=== PATIENT | male | born 1975 | race Hispanic/Latino ===

== ENCOUNTER 2021-06-23 01:50 | Inpatient (IN) | payer OTHER ==
[~2021-06-23] VITALS: Ht 170.2 cm; Wt 139.3 kg
[~2021-06-23 01:50] MED LIST: AMLO10TA PO; AMLO1TAB25 PO; AMLO5CAP45 PO; ASPI81TA26 PO; ASPI81TA86 PO; ATEN100T PO; AUGM875T28 PO; BENA40TA5 PO; CHLO125TA PO; CORE25TA PO; HYDR12.55 PO; K-TA1TAB PO; LASI40TA9 PO; LISI40TA52 PO; NICO21DI3 TD; OSEL75CA PO; PRIL40CA PO; PRIN20TA3 PO; TYLE325T5 PO
[2021-06-23] MEDS ORDERED: FERR325T3 PO (03:10)
[2021-06-23] MEDS ORDERED: FOLI1TAB11 PO (03:10)
[2021-06-23] MEDS ORDERED: ASPI81CH33 PO (03:10)
[2021-06-23] MEDS ORDERED: ATOR40TA75 PO (03:10)
[2021-06-23] MEDS ORDERED: HYDR25TA PO (03:10)
[2021-06-23] MEDS ORDERED: MM S100C PO (03:10)
[2021-06-23] MEDS ORDERED: NIFE20CA PO (03:10)
[2021-06-23] MEDS ORDERED: SODI650T PO (03:10)
[2021-06-23] MEDS ORDERED: FURO80TA2 PO (03:10)
[2021-06-23] MEDS ORDERED: **hydrALAZINE HCL** 25 MG TAB PO ONE (03:20)
[2021-06-23] MEDS ORDERED: CARVedilol 12.5 MG TAB PO ONE (03:20)
[2021-06-23 03:43] LABS: BASO % 0.4 % (0.0-1.0); EOS # 0.1 10^3/uL (0.0-0.5); EOS % 1.8 % (0.0-3.0); HEMATOCRIT 32.2 % (42.0-52.0); HEMOGLOBIN 10.1 g/dl (13.5-17.5); LYMPH % 13.5 % (24.0-44.0); MEAN CORPUSCULAR HEMOGLOBIN 27.9 pg (27.0-33.0); MEAN CORPUSCULAR HGB CONC 31.4 g/dl (32.0-36.5); MONO # 0.6 10^3/uL (0.0-0.8); MONO % 7.5 % (2.0-8.0); NEUTROPHILS # 5.8 10^3/uL (1.5-8.5); NEUTROPHILS % 76.5 % (36.0-66.0); PLATELET COUNT, AUTOMATED 185 10^3/uL (150-450); RED BLOOD COUNT 3.62 10^6/uL (4.30-6.10); WHITE BLOOD COUNT 7.6 10^3/uL (4.0-10.0)
[2021-06-23] MEDS ORDERED: NIFEdipine 30 MG XL TAB PO ONE (03:45)
[2021-06-23 04:01] LABS: C REACTIVE PROTEIN QUANTITATIV 2.1 MG/DL (0.00-0.30); CALCIUM LEVEL 6.7 MG/DL (8.5-10.1); CREATININE FOR GFR 4.12 MG/DL (0.70-1.30); GLOMERULAR FILTRATION RATE 16.9 (>60); POTASSIUM SERUM 4.4 MEQ/L (3.5-5.1)
[2021-06-23] MEDS ORDERED: ANEXSIA, NORCO 7.5MG/325MG TABLET(HYDROCODONE/APAP) PO ONE (04:05)
[2021-06-23] MEDS ORDERED: NS 1,000 ML IV ONE ×2 (04:20)
[2021-06-23] MEDS ORDERED: ISOS1TAB35 PO (04:44)
[2021-06-23] MEDS ORDERED: NIFE90TA20 PO (04:44)
[2021-06-23] MEDS ORDERED: CALC667T2 PO (04:47)
[2021-06-23] MEDS ORDERED: D 101000 PO (04:47)
[2021-06-23] MEDS ORDERED: HOME MED LIST COMPLETE! XX SCH (04:50)
--- NOTE | 2021-06-23 05:02 | REPVR ---
PROCEDURE INFORMATION: Exam: XR Chest Exam date and time: 06/23/2021 4:50 AM Age: 46 years old Clinical indication: Other: Hypertensive; Additional info: Hypertensive emergency TECHNIQUE: Imaging protocol: XR of the chest. Views: 1 view. COMPARISON: CR Chest, 2 view PA, Lat 08/21/2015 4:01 PM FINDINGS: Lungs: There is suggestion of some peribronchial thickening with some prominent markings in the lung bases. Pleural spaces: Unremarkable. No pleural effusion. No pneumothorax. Heart/Mediastinum: The cardiomediastinal silhouette is magnified. Bones/joints: Unremarkable. IMPRESSION: 1. No focal lung consolidation. 2. Some central bronchial wall thickening with some prominent markings raising the possibility of bronchitis. Correlate clinically. Electronically signed by: Real Infante On 06/23/2021 05:01:44 AM
[2021-06-23] MEDS ORDERED: DOCUSATE SODIUM 100MG CAPSULE PO PRN (05:15)
[2021-06-23] MEDS ORDERED: ACETAMINOPHEN TAB 650MG DOSE (2X325MG) PO PRN (05:15)
--- NOTE | 2021-06-23 05:20 | REPVR ---
PROCEDURE INFORMATION: Exam: CT Left Lower Extremity Without Contrast; Lower Leg Exam date and time: 06/23/2021 3:40 AM Age: 46 years old Clinical indication: Other: Infected ulcer; Additional info: Callf ulcer, concern for abscess TECHNIQUE: Imaging protocol: CT of the Left lower extremity without contrast was performed. Exam focused on the lower leg. Radiation optimization: All CT scans at this facility use at least one of these dose optimization techniques: automated exposure control; mA and/or kV adjustment per patient size (includes targeted exams where dose is matched to clinical indication); or iterative reconstruction. COMPARISON: US Duplex, Ext LOWER veins, bilat 04/24/2015 10:15 AM FINDINGS: Bones/joints: Normal. No acute fracture or dislocation. Soft tissues: There is diffuse left calf and ankle subcutaneous edema. There is irregularity and cutaneous defect in the posterior distal calf. Vasculature: Dilated varicose veins seen in the medial and anterior calf. IMPRESSION: 1. Posterior distal calf cutaneous irregularity and defect likely the site of the ulcer mentioned in the clinical indication coupled with diffuse left calf and ankle subcutaneous edema but without obvious walled-off collection to suggest an abscess however the study is limited due to lack of IV contrast. 2. No bony destruction or periosteal reaction seen to suggest osteomyelitis. 3. Dilated varices in the medial and anterior aspect of the left lower leg Electronically signed by: Real Infante On 06/23/2021 05:19:44 AM
[2021-06-23 05:26] LABS: RSV AMPLIFICATION NEGATIVE (NEGATIVE)
[2021-06-23 05:39] LABS: PHOSPHORUS LEVEL 5.7 MG/DL (2.5-4.9)
--- NOTE | 2021-06-23 05:39 | HPEPDOC ---
General Date of Admission Date of Service: Jun 23, 2021 Attending Physician: Luis Curiel Chief Complaint Pain in the leg ulcer Source: Patient History of Present Illness Mr. Clark, a 46-year-old gentleman presented to the emergency department for pain in the chronic leg ulcer in the left lower leg. He has had ulcer in the left lower leg leg since July 2020. He has been in follow-up with wound care in [facility] for the leg ulcer. He is in [place], [place] for a family trip. He noted that he had increasing pain in the leg ulcer for last 2 days without increase in the redness or warmth in the skin in the vicinity of the ulcer. He did not notice any increasing size of the ulcer either. There has been no excessive discharge or purulence from the wound. He has had no fever or shaking chills. He has chronic kidney disease for a long duration now. He is being prepared for hemodialysis in [facility]. He has been recommended a fistula surgery, which he has to get done yet. He uses sodium bicarbonate pills along with calcium acetate and cholecalciferol. He has past history of severe hypertension. He is on 3 medications for hypertension, namely, nifedipine, carvedilol and hydralazine. He does not have cough, sputum production, hemoptysis, chest pain, shortness of breath, abdominal pain, nausea, vomiting, diarrhea, blood in the stool, melena, abdominal distention, constipation, burning in the urine, frequency of micturition, blood in the urine, headache, blurry vision, focal weakness of extremities, sensory symptoms on the face or extremities, joint pains, joint swellings, lymph node enlargement, skin rash, tongue ulcers, sore throat or symptoms of cold. Home Medications Scheduled Aspirin (Aspirin) 81 Mg Tab.chew, 81 MG PO DAILY, (Reported) Atorvastatin Calcium (Atorvastatin Calcium) 40 Mg Tablet, 40 MG PO QHS, ( Reported) Calcium Acetate (Calcium Acetate) 667 Mg Tablet, 667 MG PO TID, (Reported) Carvedilol (Coreg) 25 Mg Tab, 25 MG PO BID, (Reported) Cholecalciferol (Vitamin D3) (Vitamin D3) 25 Mcg Capsule, 25 MCG PO QWEEK, (Reported) FRIDAY Ferrous Sulfate (Ferrous Sulfate) 325 Mg Tablet.dr, 325 MG PO DAILY, (Reported) Folic Acid (Folic Acid) 1 Mg Tablet, 1 MG PO DAILY, (Reported) Furosemide (Furosemide) 80 Mg Tablet, 80 MG PO BID, (Reported) Hydralazine HCl (Hydralazine HCl) 25 Mg Tablet, 75 MG PO TID, (Reported) Isosorbide Mononitrate (Isosorbide Mononitrate ER) 30 Mg Tab.er.24h, 30 MG PO DAILY, (Reported) Nifedipine (Nifedipine ER) 90 Mg Tablet.er, 90 MG PO DAILY, (Reported) Sodium Bicarbonate (Sodium Bicarbonate) 650 Mg Tablet, 1,300 MG PO TID, (Reported) Scheduled PRN Docusate Sodium (Stool Softener) 100 Mg Capsule, 100 MG PO DAILY PRN for CONSTIPATION, (Reported) Allergies Coded Allergies: iodine (Verified Allergy, Severe, 06/23/21) Past Medical History Medical History Chronic kidney disease Hypertension Chronic leg ulcer Surgical History None Family History No history of end-stage renal disease necessitating hemodialysis in the family. Social History * Smoker: Denies Alcohol: Denies A-FIB/CHADSVASC A-FIB History Current/History of A-Fib/PAF?: No Review of Systems Other systems 10 system review negative except as stated in the history of present illness. Physical Examination Other physical findings Vitals: Reviewed Examination: General: Obese body habitus. Decubitus: Supine. Oral examination: ___ oral mucosa. Head, neck and ENT: No cervical lymphadenopathy. Eyes: ___ pallor. No icterus. Skin: No generalized skin rash. Cardiovascular: Regular rhythm. Tachycardia present. Loud S1. No murmur. Respiratory: Air entry equal on both sides. No crackles, rhonchi or wheeze. No pleural friction rub. Abdominal: No abdominal distention. Tenderness in ___ quadrant. Bowel sounds not exaggerated. Genitourinary: No renal angle tenderness. No suprapubic tenderness. Neurologic: Conscious, alert and oriented with respect to time place and person. Joints: No tenderness or swelling of joints. Extremities: No extremity swelling. Psychiatric: Normal mood and mood-congruent affect. Vital Signs Vital Signs Date Time Temp Pulse Resp B/P (MAP) Pulse Ox O2 Delivery O2 Flow Rate FiO2 06/23/21 05:15 18 183/96 (125) 99 Room Air 06/23/21 05:00 84 06/23/21 01:50 97.5 Laboratory Data Labs 24H Laboratory Tests 2 06/23/21 02:58: Immature Granulocyte % (Auto) 0.3, Neutrophils (%) (Auto) 76.5H, Lymphocytes (%) (Auto) 13.5L, Monocytes (%) (Auto) 7.5, Eosinophils (%) (Auto) 1.8, Basophils (%) (Auto) 0.4, Neutrophils # (Auto) 5.8, Lymphocytes # (Auto) 1.0L, Monocytes # (Auto) 0.6, Eosinophils # (Auto) 0.1, Basophils # (Auto) 0.0, Nucleated Red Blood Cells % (auto) 0.0, Anion Gap 10, Glomerular Filtration Rate 16.9L, Lactic Acid Level 0.6, Calcium Level 6.7L, C-Reactive Protein, Quantitative 2.10H, SL-Hcp-O-Type Natriuretic Peptide 1995 06/23/21 04:38: 06/23/21 05:09: POC Troponin I (Misc) 0.03 CBC/BMP Laboratory Tests 06/23/21 02:58 Microbiology Microbiology 06/23/21 Blood Culture, Received Pending 06/23/21 Blood Culture, Received Pending Assessment/Plan 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 No evidence of cellulitis. Serum calcium level within normal limits; phosphorus level to be tested now. Wound care is aimed at at present. Hypertensive urgency/uncontrolled hypertension Secondary to stage IV chronic kidney disease. Had missed prescription medication doses today; medications administered in the emergency department. Clonidine to be added to the regimen. Follow-up with cloud automation tester is recommended. T wave inversions without chest pain T wave inversions in limb leads I and aVL noted on EKG. To be monitored briefly on telemetry. Troponin level to be tested. Aspirin and beta-eduardo to continue. Stage IV chronic kidney disease Patient informs that he is being prepared for hemodialysis in [facility]. No immediately preceding creatinine level available. 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 Sodium bicarbonate pills to be held briefly because of uncontrolled hypertension. Calcium acetate to continue. Outpatient follow-up with cloud automation tester as recommended. Prolonged QT interval Medications with potential for QT prolongation to be avoided. Obesity and obstructive sleep apnea CPAP may be continued if desired by the patient. DVT prophylaxis Mechanical alone in view of severe uncontrolled hypertension. Coronavirus screening SARS COV 2 PCR specimen drawn in the emergency department. CPR status Full code Plan / VTE VTE Prophylaxis Ordered?: Yes VTE Exclusion Pharmacological: Bleeding Risk Luis Curiel Jun 23, 2021 05:39
[2021-06-23 06:38] VITALS: BP 182/74
[2021-06-23] MEDS: CALCIUM ACETATE 667MG GELCAP PO SCH ×3 (08:13→18:20)
[2021-06-23] MEDS: FERROUS SULFATE 325MG TAB PO SCH (08:13)
[2021-06-23] MEDS: ASPIRIN 81 MG CHEW TABLET PO SCH (08:13)
--- NOTE | 2021-06-23 08:56 | IPNPDOC ---
Text Note Date of Service The patient was seen on 06/23/21. NOTE Subjective: 46-year-old male presented emergency room department for evaluation of a chronic left lower leg ulcer. He reports increasing pain, redness and warmth over the last 2 days. Seen and examined at bedside this morning. Continues to complain of chronic left lower leg pain around the wound site. He denies loss of strength and sensation. Reports this wound has been ongoing since July/2020 and it has been evaluated by surgeons in the past (in [facility]) without any intervention done. Hoping to get reevaluated now. Review of systems: 10 point review of system was negative except for what is noted in the HPI Physical exam: General: Lying in bed, no acute distress Head/Neck/Throat: Trachea midline, mucous membranes moist Eyes: Sclera anicteric, no erythema or discharge appreciated bilaterally Thorax: Normal respiratory effort on room air, lungs clear to auscultation bilaterally, no wheezes/rales/rhonchi Cardiovascular: Normal rate, regular rhythm, normal S1, S2; no S3, S4. Dorsalis pedis pulses are palpable bilaterally Abdomen: Bowel sounds present, soft/nontender/nondistended Genitourinary: No CVA tenderness, no Burris in place Musculoskeletal: Moving all extremities, no edema Skin: There is a left lower extremity wound over the medial posterior mid calf region. There is some yellow purulent discharge appreciated around the borders of the wound, and a area of eschar Neurologic: AAOx3, speech fluent and goal-directed, no focal deficits, grossly intact Labs: See below Imaging: Please see imaging section Assessment/plan: 46-year-old male with a past medical history of chronic kidney disease, hypertension, and congestive heart failure presented to the emergency room department for an evaluation of his chronic left lower extremity wound. Reports having increasing pain, redness and warmth of the last 2 days. 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 There is some erythema and discharge ap preciated around the borders as well as areas of eschar. Obtain wound care consult. Start vancomycin. 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 Continue to monitor Cr. Dose meds appropriately. #CHF -No signs of acute of exacerbation. C/w carvedilol, hydralazine and Imdur -Lasix as needed #Hypertensive urgency -Likely exacerbated secondary to his pain. Started on clonidine in addition to his ambulatory medications including hydralazine, Imdur, and nifedipine #Hyperlipidemia -Continue with statin therapy. DVT prophylaxis -Heparin subcu VS,Fishbone, I+O VS, Fishbone, I+O Laboratory Tests 06/23/21 02:58 Vital Signs Date Time Temp Pulse Resp B/P (MAP) Pulse Ox O2 Delivery O2 Flow Rate FiO2 06/23/21 06:38 98.2 88 16 182/74 (110) 99 Room Air I&O- Last 24 Hours up to 6 AM 06/23/21 06:00 Intake Total 1000 ml Balance 1000 ml MARTHA PAULSON M.D. Jun 23, 2021 08:56
[2021-06-23] MEDS ORDERED: NIFEdipine 30 MG XL TAB PO SCH (09:00)
[2021-06-23] MEDS: NIFEdipine 30 MG XL TAB PO SCH (09:05)
[2021-06-23] MEDS: cloNIDine 0.1MG TABLET PO SCH ×2 (09:06→20:33)
[2021-06-23] MEDS: ISOSORBIDE MON. (IMDUR) 30 MG XR TAB PO SCH (09:06)
[2021-06-23] MEDS: **hydrALAZINE HCL** 25 MG TAB PO SCH ×3 (09:06→20:34)
[2021-06-23] MEDS: CARVedilol 12.5 MG TAB PO SCH ×2 (09:07→20:33)
[2021-06-23] MEDS ORDERED: VANCOMYCIN HCL 0 MG in IV FLUID PLACE HOLDER 1 EA IV ONE (09:15)
--- NOTE | 2021-06-23 09:57 | ECGEPIP ---
[facility] - ED Test Date: 2021-06-23 Pat Name: VANDANA OGDEN Department: Room: [place] [address] Gender: Male [employer] Supervisor: Kellen HALL : 1975 Requested By: JON Foreman Order Number: [id number] Reading MD: Yfn Gold Measurements Intervals [place] Rate: 78 P: 57 ME: 144 QRS: 50 QRSD: 104 T: 117 QT: 446 QTc: 508 Interpretive Statements Normal sinus rhythm Minimal voltage criteria for LVH, may be normal variant ( Imer product ) T wave abnormality, consider lateral ischemia Prolonged QT cw 04/24/[address] T wave changes Electronically Signed on 06-23-2021 9:57:28 EST by Yfn Gold
[2021-06-23] MEDS ORDERED: oxyCODONE 5MG TAB PO ONE (10:00)
[2021-06-23] MEDS ORDERED: VANCOMYCIN HCL 1,000 MG, VIAL MATE ADAPTER 1 EACH in NS 250 ML IV ONE (11:00)
[2021-06-23 12:11] LABS: HEMOGLOBIN A1c 5.5 %
--- NOTE | 2021-06-23 12:24 | REP ---
INDICATION: r/o clot COMPARISON: 04/24/2015 TECHNIQUE: Mcmahan scale and color Doppler evaluation using linear high frequency transducer. FINDINGS: Ultrasound examination of the right and left lower extremity deep venous structures from the common femoral vein through the popliteal vein and trifurcation demonstrates normal compressibility, flow and wave patterns in response to respiration and augmentation. There is no evidence for deep venous thrombosis. Calf veins are incompletely evaluated due to body habitus and edema. IMPRESSION: No evidence for deep venous thrombosis. <Electronically signed by Castro Bañuelos > 06/23/21 [id number]
[2021-06-23] MEDS ORDERED: VANCOMYCIN HCL 750 MG, VIAL MATE ADAPTER 1 EACH in NS 250 ML IV ONE (13:00)
[2021-06-23] MEDS: ACETAMINOPHEN TAB 650MG DOSE (2X325MG) PO SCH ×3 (13:07→23:53)
[2021-06-23] MEDS: HEPARIN SOD (PORCINE) 5000UNITS/ML 1ML VIAL/SYRINGE SQ SCH ×3 (13:07→20:36)
[2021-06-23 14:00] VITALS: BP 134/93
[2021-06-23] MEDS: (RENVELA) SEVELAMER **CARBONate** 800 MG TAB PO SCH (18:19)
[2021-06-23] MEDS: AMPICILLIN SOD/SULBACTAM SOD 3 GM in D5W MINI-BAG PLUS 100 ML IV SCH (18:19)
[2021-06-23] MEDS: traMADol 50 MG TAB PO PRN (20:31)
[2021-06-23] MEDS: hydrOXYzine 10 MG TAB PO PRN (20:31)
[2021-06-23] MEDS: ATORVASTATIN 20 MG TAB PO SCH (20:31)
[2021-06-23 22:00] VITALS: BP 152/95
[2021-06-23 23:00] VITALS: BP 126/86
[2021-06-24] MEDS: HEPARIN SOD (PORCINE) 5000UNITS/ML 1ML VIAL/SYRINGE SQ SCH ×4 (04:44→21:10)
[2021-06-24] MEDS: ACETAMINOPHEN TAB 650MG DOSE (2X325MG) PO SCH ×3 (05:17→17:22)
[2021-06-24] MEDS: AMPICILLIN SOD/SULBACTAM SOD 3 GM in D5W MINI-BAG PLUS 100 ML IV SCH ×2 (05:17→17:23)
[2021-06-24 06:00] VITALS: BP 147/88
[2021-06-24 06:23] LABS: BASO # 0.1 10^3/uL (0.0-0.2); BASO % 0.7 % (0.0-1.0); EOS # 0.3 10^3/uL (0.0-0.5); EOS % 3.3 % (0.0-3.0); HEMATOCRIT 32.1 % (42.0-52.0); HEMOGLOBIN 9.8 g/dl (13.5-17.5); LYMPH # 1.2 10^3/uL (1.5-5.0); LYMPH % 13.7 % (24.0-44.0); MEAN CORPUSCULAR HEMOGLOBIN 27.5 pg (27.0-33.0); MEAN CORPUSCULAR HGB CONC 30.5 g/dl (32.0-36.5); MEAN CORPUSCULAR VOLUME 89.9 fl (80.0-96.0); MONO # 0.7 10^3/uL (0.0-0.8); MONO % 8.4 % (2.0-8.0); NEUTROPHILS # 6.3 10^3/uL (1.5-8.5); NEUTROPHILS % 73.6 % (36.0-66.0); PLATELET COUNT, AUTOMATED 168 10^3/uL (150-450); RED BLOOD COUNT 3.57 10^6/uL (4.30-6.10); WHITE BLOOD COUNT 8.6 10^3/uL (4.0-10.0)
[2021-06-24 06:47] LABS: MAGNESIUM LEVEL 1.8 MG/DL (1.8-2.4); PHOSPHORUS LEVEL 5.1 MG/DL (2.5-4.9)
[2021-06-24 06:48] LABS: ALBUMIN 3.3 GM/DL (3.2-5.2); BILIRUBIN,TOTAL 0.5 MG/DL (0.2-1.0); CREATININE FOR GFR 3.6 MG/DL (0.70-1.30); GLOMERULAR FILTRATION RATE 19.7 (>60); POTASSIUM SERUM 4.5 MEQ/L (3.5-5.1)
[2021-06-24] MEDS: (RENVELA) SEVELAMER **CARBONate** 800 MG TAB PO SCH ×3 (08:59→17:21)
[2021-06-24] MEDS: ISOSORBIDE MON. (IMDUR) 30 MG XR TAB PO SCH (08:59)
[2021-06-24] MEDS: ASPIRIN 81 MG CHEW TABLET PO SCH (08:59)
[2021-06-24] MEDS: CALCIUM ACETATE 667MG GELCAP PO SCH ×3 (08:59→17:21)
[2021-06-24] MEDS: traMADol 50 MG TAB PO PRN ×2 (08:59→21:07)
[2021-06-24] MEDS: NIFEdipine 30 MG XL TAB PO SCH (09:00)
[2021-06-24] MEDS: CARVedilol 12.5 MG TAB PO SCH ×2 (09:00→21:10)
[2021-06-24] MEDS: **hydrALAZINE HCL** 25 MG TAB PO SCH ×3 (09:01→21:09)
[2021-06-24] MEDS: FERROUS SULFATE 325MG TAB PO SCH (09:01)
[2021-06-24] MEDS: VANCOMYCIN HCL 1,000 MG, VIAL MATE ADAPTER 1 EACH in NS 250 ML IV SCH (09:02)
[2021-06-24] MEDS: cloNIDine 0.1MG TABLET PO SCH ×2 (09:02→21:10)
--- NOTE | 2021-06-24 10:28 | IPNPDOC ---
Text Note Date of Service The patient was seen on 06/24/21. NOTE Subjective: 46-year-old male presented emergency room department for evaluation of a chronic left lower leg ulcer. He reports increasing pain, redness and warmth over the last 2 days. Seen and examined at bedside this morning. Continues to complain of chronic left lower leg pain around the wound site. He denies loss of strength and sensation. Reports this wound as well as the pain has been ongoing since July/2020. The intensity of pain has not changed. Denies chills, headaches, chest pain, sob, abd pain, n/v and problems w/ urination and bowel movements. Review of systems: 10 point review of system was negative except for what is noted in the HPI Physical exam: General: Lying in bed, no acute distress Head/Neck/Throat: Trachea midline, mucous membranes moist Eyes: Sclera anicteric, no erythema or discharge appreciated bilaterally Thorax: Normal respiratory effort on room air, lungs clear to auscultation bilaterally, no wheezes/rales/rhonchi Cardiovascular: Normal rate, regular rhythm, normal S1, S2; no S3, S4. Dorsalis pedis pulses are palpable bilaterally Abdomen: Bowel sounds present, soft/nontender/nondistended Genitourinary: No CVA tenderness, no Burris in place Musculoskeletal: Moving all extremities, no edema Skin: There is a left lower extremity wound over the medial posterior mid calf region. There is some yellow purulent discharge appreciated around the borders of the wound, and a area of eschar. There is around the thigh region elevated reticular type darkening. Neurologic: AAOx3, speech fluent and goal-directed, no focal deficits, grossly intact Labs: See below Imaging: Please see imaging section Assessment/plan: 46-year-old male with a past medical history of chronic kidney disease, hypertension, and congestive heart failure presented to the emergency room department for an evaluation of his chronic left lower extremity wound. Reported having increasing pain, redness and warmth of the last 2 days. 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 There is some erythema and discharge appreciated around the borders as well as areas of eschar. Obtain wound care consult. Started on Unasyn and vancomycin until cultures have resulted. #Chronic kidney disease stage IV -Follows supervisor mails, and plan for graft in [facility]. Continue to monitor Cr. Dose meds appropriately. #CHF -No signs of acute of exacerbation. C/w carvedilol, hydralazine and Imdur -Lasix as needed #Hypertensive urgency -Resolved. Started on clonidine in addition to his ambulatory medications including hydralazine, Imdur, and nifedipine #Hyperlipidemia -Continue with statin therapy. DVT prophylaxis -Heparin subcu Disposition: Awaiting for advanced wound care consult. VS,Fishbone, I+O VS, Fishbone, I+O Laboratory Tests 06/24/21 05:17 Vital Signs Date Time Temp Pulse Resp B/P (MAP) Pulse Ox O2 Delivery O2 Flow Rate FiO2 06/24/21 09:02 147/88 06/24/21 09:00 97 06/24/21 08:59 18 06/24/21 06:00 97.9 98 Room Air I&O- Last 24 Hours up to 6 AM 06/24/21 05:59 Intake Total 2045 ml Output Total 1750 ml Balance 295 ml MARTHA PAULSON M.D. Jun 24, 2021 10:28
[2021-06-24 14:00] VITALS: BP 133/88
[2021-06-24] MEDS: ATORVASTATIN 20 MG TAB PO SCH (21:10)
[2021-06-24] MEDS: hydrOXYzine 10 MG TAB PO PRN (21:20)
[2021-06-24 22:00] VITALS: BP 166/97
[2021-06-25] MEDS: ACETAMINOPHEN TAB 650MG DOSE (2X325MG) PO SCH ×5 (00:39→23:01)
[2021-06-25] MEDS: AMPICILLIN SOD/SULBACTAM SOD 3 GM in D5W MINI-BAG PLUS 100 ML IV SCH ×2 (05:45→17:36)
[2021-06-25] MEDS: HEPARIN SOD (PORCINE) 5000UNITS/ML 1ML VIAL/SYRINGE SQ SCH ×3 (05:45→22:00)
[2021-06-25 06:00] VITALS: BP 158/97
[2021-06-25 06:19] LABS: BASO # 0.1 10^3/uL (0.0-0.2); BASO % 0.7 % (0.0-1.0); EOS # 0.2 10^3/uL (0.0-0.5); EOS % 3.1 % (0.0-3.0); HEMATOCRIT 30.9 % (42.0-52.0); HEMOGLOBIN 9.4 g/dl (13.5-17.5); LYMPH # 1.2 10^3/uL (1.5-5.0); LYMPH % 16.5 % (24.0-44.0); MEAN CORPUSCULAR HEMOGLOBIN 27.6 pg (27.0-33.0); MEAN CORPUSCULAR HGB CONC 30.4 g/dl (32.0-36.5); MEAN CORPUSCULAR VOLUME 90.9 fl (80.0-96.0); MONO # 0.7 10^3/uL (0.0-0.8); NEUTROPHILS # 5.2 10^3/uL (1.5-8.5); NEUTROPHILS % 70.3 % (36.0-66.0); PLATELET COUNT, AUTOMATED 186 10^3/uL (150-450); WHITE BLOOD COUNT 7.3 10^3/uL (4.0-10.0)
[2021-06-25 06:42] LABS: MAGNESIUM LEVEL 1.9 MG/DL (1.8-2.4); PHOSPHORUS LEVEL 5.5 MG/DL (2.5-4.9)
[2021-06-25 06:43] LABS: ALBUMIN 3.1 GM/DL (3.2-5.2); BILIRUBIN,TOTAL 0.4 MG/DL (0.2-1.0); CALCIUM LEVEL 7.3 MG/DL (8.5-10.1); CREATININE FOR GFR 3.76 MG/DL (0.70-1.30); GLOMERULAR FILTRATION RATE 18.7 (>60); POTASSIUM SERUM 4.9 MEQ/L (3.5-5.1); TOTAL PROTEIN 8.6 GM/DL (6.4-8.2)
[2021-06-25] MEDS: CALCIUM ACETATE 667MG GELCAP PO SCH ×3 (08:00→17:39)
--- NOTE | 2021-06-25 08:13 | IPNPDOC ---
Text Note Date of Service The patient was seen on 06/25/21. NOTE Subjective: 46-year-old male presented emergency room department for evaluation of a chronic left lower leg ulcer. He reports increasing pain, redness and warmth over the last 2 days. Seen and examined at bedside this morning. Continues to complain of chronic left lower leg pain around the wound site. He denies loss of strength and sensation. Denies chest pain, sob, abd pain, n/v, problems with urination and bowel movements. Review of systems: 10 point review of system was negative except for what is noted in the HPI Physical exam: General: Lying in bed, no acute distress Head/Neck/Throat: Trachea midline, mucous membranes moist Eyes: Sclera anicteric, no erythema or discharge appreciated bilaterally Thorax: Normal respiratory effort on room air, lungs clear to auscultation bilaterally, no wheezes/rales/rhonchi Cardiovascular: Normal rate, regular rhythm, normal S1, S2; no S3, S4. Dorsalis pedis pulses are palpable bilaterally Abdomen: Bowel sounds present, soft/nontender/nondistended Genitourinary: No CVA tenderness, no Burris in place Musculoskeletal: Moving all extremities, no edema Skin: There is a left lower extremity wound over the medial posterior mid calf region; dressing was removed with some yellow discharge appreciated. Neurologic: AAOx3, speech fluent and goal-directed, no focal deficits, grossly intact Labs: See below Imaging: Please see imaging section Assessment/plan: 46-year-old male with a past medical history of chronic kidney disease, hypertension, and congestive heart failure presented to the emergency room department for an evaluation of his chronic left lower extremity wound. Reported having increasing pain, redness and warmth of the last 2 days. 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 There is some erythema and discharge appreciated around the borders as well as areas of eschar. Obtain wound care consult. Started on Unasyn and vancomycin until cultures have resulted. #Chronic kidney disease stage IV -Follows water filter cleaner, and plan for graft in [facility]. Continue to monitor Cr. Dose meds appropriately. #CHF -No signs of acute of exacerbation. C/w carvedilol, hydralazine and Imdur -Lasix as needed #Hypertensive urgency -Resolved. Started on clonidine in addition to his ambulatory medications including hydralazine, Imdur, and nifedipine #Hyperlipidemia -Continue with statin therapy. DVT prophylaxis -Heparin subcu Disposition: Awaiting for advanced wound care consult. VS,Fishbone, I+O VS, Fishbone, I+O Laboratory Tests 06/25/21 05:17 Vital Signs Date Time Temp Pulse Resp B/P (MAP) Pulse Ox O2 Delivery O2 Flow Rate FiO2 06/25/21 06:00 97.9 93 16 158/97 (117) 96 Room Air I&O- Last 24 Hours up to 6 AM 06/25/21 06:00 Intake Total 1660 ml Output Total 1450 ml Balance 210 ml MARTHA PAULSON M.D. Jun 25, 2021 08:13
[2021-06-25] MEDS: FOLIC ACID 1 MG TAB PO SCH (10:20)
[2021-06-25] MEDS: **hydrALAZINE HCL** 25 MG TAB PO SCH ×3 (10:21→22:28)
[2021-06-25] MEDS: cloNIDine 0.1MG TABLET PO SCH ×2 (10:21→23:00)
[2021-06-25] MEDS: ASPIRIN 81 MG CHEW TABLET PO SCH (10:21)
[2021-06-25] MEDS: FERROUS SULFATE 325MG TAB PO SCH (10:22)
[2021-06-25] MEDS: SODIUM BICARBONATE 325 MG TAB PO SCH ×3 (10:22→22:28)
[2021-06-25] MEDS: CARVedilol 12.5 MG TAB PO SCH ×2 (10:22→22:28)
[2021-06-25] MEDS: traMADol 50 MG TAB PO PRN ×2 (10:24→22:31)
[2021-06-25] MEDS: ISOSORBIDE MON. (IMDUR) 30 MG XR TAB PO SCH (10:24)
[2021-06-25] MEDS: NIFEdipine 30 MG XL TAB PO SCH (10:24)
[2021-06-25] MEDS: VANCOMYCIN HCL 1,000 MG, VIAL MATE ADAPTER 1 EACH in NS 250 ML IV SCH (10:27)
[2021-06-25] MEDS: (RENVELA) SEVELAMER **CARBONate** 800 MG TAB PO SCH ×2 (11:28→17:35)
[2021-06-25 13:00] LABS: PTH INTACT 278.2 PG/ML (18.5-88.0)
[2021-06-25 14:00] VITALS: BP 159/92
--- NOTE | 2021-06-25 14:31 | REP ---
INDICATION: Please perform standing venous and supine venous ultrasound COMPARISON: 06/23/2021. TECHNIQUE: Real time compression and duplex Doppler interrogation of the left lower extremity deep venous system is performed, to evaluate for reflux. Recent exam 06/23/2021 showed no DVT. FINDINGS: There is significant reflux in the greater saphenous vein with Valsalva maneuver. There is reflux in the greater saphenous vein at the saphenofemoral junction with a duration of 5.6 seconds, diameter 10 mm, also at the midthigh with duration of 3.7 seconds, AP diameter 8 mm, as well as at the level of the knee with duration of 3.8 seconds and AP diameter 9 mm. There is no reflux in the lesser saphenous vein which measures 3 mm. There is no reflux in any portion of the deep vein system. There is an anterior accessory greater saphenous vein present which measures 6 mm, with no evidence of reflux. IMPRESSION: There is significant reflux in the greater saphenous vein with Valsalva maneuver as discussed above. <Electronically signed by Surya Mcmahan > 06/25/21 [id number]
--- NOTE | 2021-06-25 15:50 | CR ---
ADVANCED WOUND CARE CONSULTATION VIA TELEMEDICINE DATE: 06/25/2021 REQUESTING PHYSICIAN: Dr. Sriram Lamb CONSULTING PHYSICIAN: Dr. Lucian Amador REASON FOR CONSULTATION: Right lower extremity wound Wound care telemedicine provides a visual assessment of a wound or wounds without the benefit of physical examination. This can assist with establishing a diagnosis and etiology. This allows for an initial treatment plan. As wounds often change, it may be necessary to modify the original care. Our recommendation is periodic wound reassessment to monitor treatment. Failure to comply may result in non healing of the wound, possible complications and/or a poor outcome. The recommendations given will serve as treatment options. As I will not be following this patient, this care plan will require the attending physician to give and sign the orders. Upon discharge, outpatient follow up can be scheduled at our Wound Care Center. HISTORY OF PRESENT ILLNESS: A morbidly obese 46-year-old male admitted for uncontrolled hypertension, found to have a left lower extremity extensive venous stasis ulcer. The patient does not give a history of diabetes or prior deep vein thrombosis. The patient does indicate that this has been a problem off and on for many years and has had an Unna boot as part of his treatment in the past. When seen today, the patient has a large partial circumferential wound involving the left lower extremity, posterior calf extending medially. This wound measures 10.5 cm by 11.5 cm with a wound depth of 0.4 cm. This wound base shows areas of fiber and slough and superficial necrotic tissue. There is a skin bridge involving the central portion of the wound. Drainage is minimal to moderate and serosanguinous without odor. Wound edges are attached, and the periwound shows minimal erythema without ischemic changes. 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 The treatment of venous stasis ulcers is basically elevation and compression along with moist wound care and wound debridement. RECOMMENDATIONS: Our recommendations are: 1. Clean the wound with Vashe and the periwound as well with Vashe. 2. If possible, use a curette to remove any superficial fibrin slough until minimal bleeding is encountered. 3. Dressing changes to be recommended. 4. Hydrofera Blue transfer covered by an Optilock along with a Tubigrip stocking, pre-measured for a snug fit. 5. Elevation of the foot of the bed, Trendelenburg position is mandatory. 6. Dietary should see the patient in terms of a weight reduction diet. 7. Before discharge, supine and more importantly, standing venous ultrasound of the left lower extremity should be obtained to evaluate for reflux. 8. No indication for antibiotic therapy at this time. 9. Dressing changes to be done on a daily basis. PLAN: Prior to discharge, please call our Wound Care Center if the patient wishes to follow up at our facility. JOSE ANGEL
[2021-06-25 18:57] LABS: TOTAL 25(OH) VITAMIN D 29.3 NG/ML (30.0-100.0)
[2021-06-25 20:00] VITALS: BP 144/75
[2021-06-25] MEDS: ATORVASTATIN 20 MG TAB PO SCH (22:27)
[2021-06-26] MEDS: ACETAMINOPHEN TAB 650MG DOSE (2X325MG) PO SCH ×4 (05:11→23:17)
[2021-06-26] MEDS: AMPICILLIN SOD/SULBACTAM SOD 3 GM in D5W MINI-BAG PLUS 100 ML IV SCH ×2 (05:11→17:42)
[2021-06-26] MEDS: HEPARIN SOD (PORCINE) 5000UNITS/ML 1ML VIAL/SYRINGE SQ SCH ×4 (05:11→21:46)
[2021-06-26 06:00] VITALS: BP 158/90
[2021-06-26 06:24] LABS: BASO % 0.5 % (0.0-1.0); EOS # 0.2 10^3/uL (0.0-0.5); EOS % 2.6 % (0.0-3.0); HEMATOCRIT 28.7 % (42.0-52.0); LYMPH % 14.9 % (24.0-44.0); MEAN CORPUSCULAR HEMOGLOBIN 28.1 pg (27.0-33.0); MEAN CORPUSCULAR HGB CONC 31.4 g/dl (32.0-36.5); MEAN CORPUSCULAR VOLUME 89.7 fl (80.0-96.0); MONO # 0.5 10^3/uL (0.0-0.8); MONO % 8.1 % (2.0-8.0); NEUTROPHILS # 4.8 10^3/uL (1.5-8.5); NEUTROPHILS % 73.6 % (36.0-66.0); PLATELET COUNT, AUTOMATED 186 10^3/uL (150-450); WHITE BLOOD COUNT 6.5 10^3/uL (4.0-10.0)
[2021-06-26 06:44] LABS: CREATININE FOR GFR 3.39 MG/DL (0.70-1.30); GLOMERULAR FILTRATION RATE 21.1 (>60); MAGNESIUM LEVEL 1.9 MG/DL (1.8-2.4); PHOSPHORUS LEVEL 4.8 MG/DL (2.5-4.9); POTASSIUM SERUM 4.5 MEQ/L (3.5-5.1)
[2021-06-26] MEDS: cloNIDine 0.1MG TABLET PO SCH ×2 (08:42→21:30)
[2021-06-26] MEDS: ISOSORBIDE MON. (IMDUR) 30 MG XR TAB PO SCH (08:43)
[2021-06-26] MEDS: ASPIRIN 81 MG CHEW TABLET PO SCH (08:43)
[2021-06-26] MEDS: SODIUM BICARBONATE 325 MG TAB PO SCH ×3 (08:43→21:30)
[2021-06-26] MEDS: CARVedilol 12.5 MG TAB PO SCH ×2 (08:44→21:30)
[2021-06-26] MEDS: NIFEdipine 30 MG XL TAB PO SCH (08:44)
[2021-06-26] MEDS: **hydrALAZINE HCL** 25 MG TAB PO SCH ×2 (08:44→17:42)
[2021-06-26] MEDS: (RENVELA) SEVELAMER **CARBONate** 800 MG TAB PO SCH ×3 (08:45→17:42)
[2021-06-26] MEDS: FERROUS SULFATE 325MG TAB PO SCH (08:45)
[2021-06-26] MEDS: CALCIUM ACETATE 667MG GELCAP PO SCH ×3 (08:45→17:42)
[2021-06-26] MEDS: FOLIC ACID 1 MG TAB PO SCH (08:45)
[2021-06-26] MEDS: traMADol 50 MG TAB PO PRN (11:06)
--- NOTE | 2021-06-26 11:54 | DS.PDOC ---
Discharge Summary General Date of Admission Jun 23, 2021 at 01:51 Date of Discharge 06/26/21 Vital Signs/I&Os Vital Signs Date Time Temp Pulse Resp B/P (MAP) Pulse Ox O2 Delivery O2 Flow Rate FiO2 06/26/21 11:06 16 Room Air 06/26/21 08:44 158/90 06/26/21 06:00 98.2 87 100 I&O- Last 24 Hours up to 6 AM 06/26/21 06:00 Intake Total 1580 ml Output Total 2471 ml Balance -891 ml Laboratory Data Labs 24H Laboratory Tests 2 06/26/21 05:53: Immature Granulocyte % (Auto) 0.3, Neutrophils (%) (Auto) 73.6H, Lymphocytes (%) (Auto) 14.9L, Monocytes (%) (Auto) 8.1H, Eosinophils (%) (Auto) 2.6, Basophils (%) (Auto) 0.5, Neutrophils # (Auto) 4.8, Lymphocytes # (Auto) 1.0L, Monocytes # (Auto) 0.5, Eosinophils # (Auto) 0.2, Basophils # (Auto) 0.0, Nucleated Red Blood Cells % (auto) 0.0, Anion Gap 9, Glomerular Filtration Rate 21.1L, Calcium Level 7.0L, Phosphorus Level 4.8, Magnesium Level 1.9 CBC/BMP Laboratory Tests 06/26/21 05:53 Microbiology Microbiology 06/23/21 Wound Culture - Final, Complete Staphylococcus Aureus Corynebacterium Species 06/23/21 Blood Culture - Preliminary, Resulted No Growth after 72 hours. All specime... 06/23/21 Blood Culture - Preliminary, Resulted No Growth after 72 hours. All specime... Discharge Medications Scheduled Aspirin (Aspirin) 81 Mg Tab.chew, 81 MG PO DAILY, (Reported) Atorvastatin Calcium (Atorvastatin Calcium) 40 Mg Tablet, 40 MG PO QHS, (Reported) Calcium Acetate (Calcium Acetate) 667 Mg Tablet, 667 MG PO TID, (Reported) Carvedilol (Coreg) 25 Mg Tab, 25 MG PO BID, (Reported) Cholecalciferol (Vitamin D3) (Vitamin D3) 25 Mcg Capsule, 25 MCG PO QWEEK, (Reported) FRIDAY Clonidine Hcl (Clonidine HCl) 0.1 Mg Tablet, 0.1 MG PO BID Ferrous Sulfate (Ferrous Sulfate) 325 Mg Tablet.dr, 325 MG PO DAILY, (Reported) Folic Acid (Folic Acid) 1 Mg Tablet, 1 MG PO DAILY, (Reported) Furosemide (Furosemide) 80 Mg Tablet, 80 MG PO BID, (Reported) Isosorbide Mononitrate (Isosorbide Mononitrate ER) 60 Mg Tab.er.24h, 60 MG PO DAILY Nifedipine (Nifedipine ER) 90 Mg Tablet.er, 90 MG PO DAILY, (Reported) Sodium Bicarbonate (Sodium Bicarbonate) 650 Mg Tablet, 1,300 MG PO TID, (Reported) hydrALAZINE HCL (Hydralazine HCl) 100 Mg Tablet, 100 MG PO TID Scheduled PRN Docusate Sodium (Stool Softener) 100 Mg Capsule, 100 MG PO DAILY PRN for CONSTIPATION, (Reported) Allergies Coded Allergies: iodine (Verified Allergy, Severe, 06/23/21) MARTHA PAULSON M.D. Jun 26, 2021 11:54
[2021-06-26 12:30] LABS: PERCENT SATURATION 7.2 % (19.7-50.0)
[2021-06-26 12:37] LABS: FOLATE 18.4 NG/ML
[2021-06-26 14:00] VITALS: BP 180/107
--- NOTE | 2021-06-26 15:29 | CR ---
CONSULTATION DATE: 06/26/2021 REFERRING PHYSICIAN: Sriram Lamb M.D. REASON FOR CONSULTATION: Acute kidney injury superimposed on chronic kidney disease and anemia. HISTORY OF PRESENT ILLNESS: Mr. Clark is a 46-year-old male with a known history of chronic kidney disease, hypertension, hyperlipidemia and a nonhealing wound on his left leg. He lives in [facility] and is visiting his family here in [place]. He was admitted to [facility] on June 23 due to pain in his left leg. He has a large nonhealing ulcer. Patient has worsening anemia and chronic kidney disease with hemoglobin of 9.0 today and GFR between 18 and 20 ml. A Nephrology consultation was requested and the patient is seen today. PAST MEDICAL HISTORY: 1. History of hypertension. 2. Stage IV chronic kidney disease. 3. Anemia. 4. Metabolic acidosis. 5. Secondary hyperparathyroidism. 6. Chronic leg edema. 7. Nonhealing wound on his left leg. 8. Morbid obesity. PAST SURGICAL HISTORY: Unremarkable. MEDICATIONS: His home medications include aspirin 81 mg daily, Atorvastatin 40 mg daily, calcium acetate 1 capsule t.i.d. with meals, Carvedilol 25 mg b.i.d., vitamin D 25 mcg once a week, ferrous sulfate 325 mg daily, folic acid 1 mg daily, furosemide 80 mg b.i.d., Hydralazine 75 mg t.i.d., Isosorbide ER 30 mg daily, Nifedipine 90 mg daily, and sodium bicarbonate 1300 mg t.i.d. ALLERGIES: Patient has an allergy to iodine. PERSONAL AND SOCIAL HISTORY: Patient reports smoking cigars once in a while. He quit cigarette smoking 20 years ago. He does smoke marijuana. Denies any intravenous drug use. FAMILY HISTORY: Negative for endstage renal disease. REVIEW OF SYSTEMS: Patient denies any fever or chills. Ears, nose and throat are unremarkable. Cardiovascular system is significant for longstanding hypertension and lower extremity edema. He has been on chronic diuretic therapy. Respiratory: Negative for cough or hemoptysis. GI system is negative for vomiting or diarrhea. system: Negative for dysuria or hematuria. He denies any history of kidney stones. Musculoskeletal system is significant for nonhealing wound on his left leg. Hematological system is significant for chronic anemia. Psychosocial system: Negative for depression or anxiety. Neurological system: Negative for seizures or stroke. Skin is significant for nonhealing ulcer on his left leg. Endocrine system is negative for diabetes or thyroid problems. He does have secondary hyperparathyroidism. PHYSICAL EXAMINATION: GENERAL: Morbidly obese male. VITAL SIGNS: Temperature 98 degrees Fahrenheit, heart rate 88 per minute and respiratory rate is 18 per minute, blood pressure is 158/90 mmHg and oxygen saturation 100% on room air. HEAD: Atraumatic. Pupils equal and reactive to light, sclerae anicteric. There is no oral thrush or ulcers. NECK: Supple. JVD is difficult to be assessed. HEART: Heart sounds are regular. LUNGS: Clear to auscultation. ABDOMEN: Obese and nontender. Bowel sounds are normal. EXTREMITIES: Without any cyanosis or clubbing. Left lower extremity ulcer is covered with a dressing. NEUROLOGIC: He is grossly intact. LABORATORY DATA: On admission, his BUN was 60 and creatinine was 4.12, sodium was 140 and potassium 4.4. Calcium level was 6.7 and phosphorus was 5.7. A BNP level was 1996. Today's sodium was 140, potassium is 4.5, CO2 20, BUN 48 and creatinine 3.39. Glucose was 106 and calcium was 7.0. Phosphorus was 4.8 and magnesium was 1.9. His intact PTH was 278 on June 24. PROBLEMS: 1. Acute renal failure superimposed on chronic kidney disease. Patient did have acute kidney injury on admission which has improved now. He seems to be somewhat volume overloaded now. I would recommend that he resume his chronic diuretic therapy with Lasix 80 mg b.i.d. His kidney function is probably close to Stage V and he was being followed by Nephrology in [facility]. He is likely to require dialysis in the near future. He will need an IV access for dialysis in the near future. 2. Metabolic acidosis. Patient has chronic metabolic acidosis related to advanced chronic kidney disease and should continue with sodium bicarbonate 1300 mg t.i.d. 3. Hypertension, blood pressure is slightly high and he is also slightly hypervolemic. I would recommend to resume his diuretic and continue with chronic antihypertensive medications. 4. Anemia. His anemia is related to chronic kidney disease and leg wound. Iron studies are being added. Anemia can be followed up in the outpatient clinic. 5. Disposition: From a renal standpoint, patient can probably be discharged to home whenever he is considered stable from his leg wound and he will follow-up in the outpatient clinic in a couple of weeks.
[2021-06-26] MEDS ORDERED: FUROSEMIDE 80 MG TAB PO SCH (18:00)
--- NOTE | 2021-06-26 18:05 | IPNPDOC ---
Text Note Date of Service The patient was seen on 06/26/21. NOTE Subjective: 46-year-old male presented emergency room department for evaluation of a chronic left lower leg ulcer. He reports increasing pain, redness and warmth over the last 2 days. Seen and examined at bedside this morning. Complain of chronic left lower leg pain around the wound site, with some improvement. He denies loss of strength and sensation. Denies chest pain, sob, abd pain, n/v, problems with urination and bowel movements. Review of systems: 10 point review of system was negative except for what is noted in the HPI Physical exam: General: Lying in bed, no acute distress Head/Neck/Throat: Trachea midline, mucous membranes moist Eyes: Sclera anicteric, no erythema or discharge appreciated bilaterally Thorax: Normal respiratory effort on room air, lungs clear to auscultation bilaterally, no wheezes/rales/rhonchi Cardiovascular: Normal rate, regular rhythm, normal S1, S2; no S3, S4. Dorsalis pedis pulses are palpable bilaterally Abdomen: Bowel sounds present, soft/nontender/nondistended Genitourinary: No CVA tenderness, no Burris in place Musculoskeletal: Moving all extremities, no edema Skin: There is a left lower extremity wound over the medial posterior mid calf region; dressing was removed with no yellow discharge appreciated today. Neurologic: AAOx3, speech fluent and goal-directed, no focal deficits, grossly intact Labs: See below Imaging: Please see imaging section Assessment/plan: 46-year-old male with a past medical history of chronic kidney disease, hypertension, and congestive heart failure presented to the emergency room department for an evaluation of his chronic left lower extremity wound. Reported having increasing pain, redness and warmth of the last 2 days. 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 -evaluated by wound care team, plan for outpatient follow up. no need for surgery at this time. #Chronic kidney disease stage IV -Follows certified pediatric nurse practitioner, and plan for graft in [facility]. Continue to monitor Cr. Dose meds appropriately. #CHF -No signs of acute of exacerbation. C/w carvedilol, hydralazine and Imdur -Lasix to be resumed #Hypertensive urgency -Resolved. Started on clonidine in addition to his ambulatory medications including hydralazine, Imdur, and nifedipine #Hyperlipidemia -Continue with statin therapy. DVT prophylaxis -Heparin subcu Disposition: Patient was ready for d/c today, but became hypertensive, will monitor overnight. VS,Fishbone, I+O VS, Fishbone, I+O Laboratory Tests 06/26/21 05:53 Vital Signs Date Time Temp Pulse Resp B/P (MAP) Pulse Ox O2 Delivery O2 Flow Rate FiO2 06/26/21 17:42 180/107 06/26/21 14:00 97.9 99 18 97 Room Air I&O- Last 24 Hours up to 6 AM 06/26/21 06:00 Intake Total 1580 ml Output Total 2471 ml Balance -891 ml MARTHA PAULSON M.D. Jun 26, 2021 18:05
[2021-06-26] MEDS ORDERED: CLONI1TA PO (18:08)
[2021-06-26 18:41] VITALS: BP 169/101
[2021-06-26] MEDS: **hydrALAZINE** 50 MG TAB PO SCH (21:29)
[2021-06-26] MEDS: ATORVASTATIN 20 MG TAB PO SCH (21:31)
[2021-06-26 22:00] VITALS: BP 164/97
[2021-06-27] MEDS: AMPICILLIN SOD/SULBACTAM SOD 3 GM in D5W MINI-BAG PLUS 100 ML IV SCH ×2 (05:20→18:11)
[2021-06-27] MEDS: HEPARIN SOD (PORCINE) 5000UNITS/ML 1ML VIAL/SYRINGE SQ SCH ×3 (05:20→21:26)
[2021-06-27] MEDS: ACETAMINOPHEN TAB 650MG DOSE (2X325MG) PO SCH ×4 (05:20→23:49)
[2021-06-27 06:00] VITALS: BP 156/68
[2021-06-27 06:02] LABS: HEMATOCRIT 31.3 % (42.0-52.0); HEMOGLOBIN 9.9 g/dl (13.5-17.5); MEAN CORPUSCULAR HEMOGLOBIN 28.1 pg (27.0-33.0); MEAN CORPUSCULAR HGB CONC 31.6 g/dl (32.0-36.5); MEAN CORPUSCULAR VOLUME 88.9 fl (80.0-96.0); PLATELET COUNT, AUTOMATED 189 10^3/uL (150-450); RED BLOOD COUNT 3.52 10^6/uL (4.30-6.10); WHITE BLOOD COUNT 7.9 10^3/uL (4.0-10.0)
[2021-06-27 06:23] LABS: CALCIUM LEVEL 7.4 MG/DL (8.5-10.1); CREATININE FOR GFR 3.26 MG/DL (0.70-1.30); GLOMERULAR FILTRATION RATE 22.1 (>60); MAGNESIUM LEVEL 1.7 MG/DL (1.8-2.4); PHOSPHORUS LEVEL 4.8 MG/DL (2.5-4.9); POTASSIUM SERUM 4.9 MEQ/L (3.5-5.1)
[2021-06-27] MEDS ORDERED: ISOS1TAB36 PO (09:06)
[2021-06-27] MEDS ORDERED: HYDR100T PO (09:06)
[2021-06-27] MEDS ORDERED: FERRIC CARBOXYMALTOSE INJ 750 MG, VIAL MATE ADAPTER 1 EACH in NS 250 ML IV ONE (10:00)
[2021-06-27] MEDS: (RENVELA) SEVELAMER **CARBONate** 800 MG TAB PO SCH ×3 (10:08→18:10)
[2021-06-27] MEDS: SODIUM BICARBONATE 325 MG TAB PO SCH ×3 (10:08→21:26)
[2021-06-27] MEDS: FUROSEMIDE 80 MG TAB PO SCH (10:09)
[2021-06-27] MEDS: CARVedilol 12.5 MG TAB PO SCH ×2 (10:09→21:27)
[2021-06-27] MEDS: **hydrALAZINE** 50 MG TAB PO SCH ×3 (10:10→21:27)
[2021-06-27] MEDS: cloNIDine 0.1MG TABLET PO SCH ×2 (10:10→21:28)
[2021-06-27] MEDS: ISOSORBIDE MON. (IMDUR) 30 MG XR TAB PO SCH (10:11)
[2021-06-27] MEDS: CALCIUM ACETATE 667MG GELCAP PO SCH ×3 (10:12→18:10)
[2021-06-27] MEDS: NIFEdipine 30 MG XL TAB PO SCH (10:12)
[2021-06-27] MEDS: FERROUS SULFATE 325MG TAB PO SCH (10:12)
[2021-06-27] MEDS: ASPIRIN 81 MG CHEW TABLET PO SCH (10:12)
[2021-06-27] MEDS: FOLIC ACID 1 MG TAB PO SCH (10:12)
[2021-06-27] MEDS: traMADol 50 MG TAB PO PRN (11:43)
[2021-06-27 11:55] VITALS: BP 148/95
[2021-06-27] MEDS ORDERED: MAGNESIUM OXIDE 400MG TAB (MAG-OX) PO ONE (12:20)
--- NOTE | 2021-06-27 12:44 | DS.PDOC ---
Discharge Summary General Date of Admission Jun 24, 2021 at 15:36 Date of Discharge 06/28/21 Primary Care Physician: A Discharge Summary DISCHARGE DIAGNOSES: Venous stasis ulcer Chronic kidney disease Hypertension urgency COMPLICATIONS/CHIEF COMPLAINT: Hypertensive Urgency,Uncontrolled Hypertension. HOSPITAL COURSE: Mr. Clark, is a 46 year old male who presented to [facility] on 06/23 for pain in his chronic left lower leg ulcer. He has had a left lower extremity ulcer over the medial aspect of his florez since July/2020. He was being followed up with wound care in [facility] and was in [place] visiting family and planning to transition his care here. He had increasing pain in the leg for 2 days prior to admission and felt it was more red and warmer in the vicinity of the ulcer. He has a past medical history in addition to the chronic left lower extremity wound includes, chronic kidney disease, congestive heart failure, hypertension, and hyperlipidemia. 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 He was started on antibiotics due to mild discharge was appreciated over the edges of the wound site. He had no systemic signs of infection (including fever or white count). Subsequently, he was evaluated by the wound care team (Dr. Amador) and it was felt that his wound was consistent with a venous stasis ulcer. Wound care instructions are posted below. Standing and supine venous ultrasound was recommended and showed significant reflux in the greater saphenous vein of the left lower extremity. He should start with 30mm hg compression stockings and this can be adjusted with his nect follow up visit in the wound care clinic if required. Nephrology team was also consulted for patient to establish care for ongoing management of his chronic kidney disease. His furosemide will be held until his next follow-up visit with nephrology in a week's time. He also has secondary hyperparathyroidism likely secondary to his chronic kidney disease. His vitamin D level was 29.3ng/ml and was asked to continue with his vitamin D supplementati on. He also has anemia of chronic disease and received IV iron. He will have ongoing monitoring with the senior statistical programmer as an outpatient. During hospitalization, was on hypertensive urgency. He was on carvedilol 25 mg, hydralazine, Imdur, nifedipine, and furosemide. He was started on clonidine on admission which will be continued on discharge. His hydralazine dose as well as Imdur were increased. He was explained to follow up with nephrology and/or primary care physician, for ongoing management of his hypertension. On 06/27 patient had an isolated fever recorded. Repeat blood cultures were negative. He remained afebrile for 24 hours. There was no leukocytosis. He will complete antibiotics (Augmentin) as prescribed. Of note, patient is aware of his anemia. His hemoglobin remained stable during hospitalization. He will need to follow-up with his primary care physician for further management. DISCHARGE MEDICATIONS: Please see below. ALLERGIES: Please see below. PHYSICAL EXAMINATION ON DISCHARGE: VITAL SIGNS: Please see below. General: Lying in bed, no acute distress Head/Neck/Throat: Trachea midline, mucous membranes moist Eyes: Sclera anicteric, no erythema or discharge appreciated bilaterally Thorax: Normal respiratory effort on room air, lungs clear to auscultation bilaterally, no wheezes/rales/rhonchi Cardiovascular: Normal rate, regular rhythm, normal S1, S2; no S3, S4. Dorsalis pedis pulses are palpable bilaterally Abdomen: Bowel sounds present, soft/nontender/nondistended Genitourinary: No CVA tenderness, no Burris in place Musculoskeletal: Moving all extremities, no edema Skin: There is a left lower extremity wound over the medial posterior mid calf region; dressing was removed with no discharge appreciated today. Neurologic: AAOx3, speech fluent and goal-directed, no focal deficits, grossly intact LABORATORY DATA: Please see below. IMAGING: Please see imaging section Patient was encouraged to obtain all imaging results for his reference and possible follow-ups that may be required. PROGNOSIS: Good ACTIVITY: As tolerated DIET: Renal DISPOSITION: Home with home services DISCHARGE INSTRUCTIONS: As described above DISCHARGE CONDITION: Stable. TIME SPENT ON DISCHARGE: 30 minutes. Vital Signs/I&Os Vital Signs Date Time Temp Pulse Resp B/P (MAP) Pulse Ox O2 Delivery O2 Flow Rate FiO2 06/27/21 11:55 97.9 80 20 148/95 (112) 06/27/21 06:00 98 Room Air I&O- Last 24 Hours up to 6 AM 06/27/21 06:00 Intake Total 1860 ml Output Total 6400 ml Balance -4540 ml Laboratory Data Labs 24H Laboratory Tests 2 06/27/21 05:17: Nucleated Red Blood Cells % (auto) 0.0, Anion Gap 7L, Glomerular Filtration Rate 22.1L, Calcium Level 7.4L, Phosphorus Level 4.8, Magnesium Level 1.7L CBC/BMP Laboratory Tests 06/27/21 05:17 Microbiology Microbiology 06/23/21 Wound Culture - Final, Complete Staphylococcus Aureus Corynebacterium Species 06/23/21 Blood Culture - Preliminary, Resulted No Growth after 72 hours. All specime... 06/23/21 Blood Culture - Preliminary, Resulted No Growth after 72 hours. All specime... Discharge Medications Scheduled Amoxicillin/Potassium Clav (Amox-Clav 875-125 mg Tablet) 1 Each Tablet, 875 MG PO BID Aspirin (Aspirin) 81 Mg Tab.chew, 81 MG PO DAILY, (Reported) Atorvastatin Calcium (Atorvastatin Calcium) 40 Mg Tablet, 40 MG PO QHS, (Reported) Calcium Acetate (Calcium Acetate) 667 Mg Tablet, 667 MG PO TID, (Reported) Carvedilol (Coreg) 25 Mg Tab, 25 MG PO BID, (Reported) Cholecalciferol (Vitamin D3) (Vitamin D3) 25 Mcg Capsule, 25 MCG PO QWEEK, (Reported) FRIDAY Clonidine Hcl (Clonidine HCl) 0.1 Mg Tablet, 0.1 MG PO BID Ferrous Sulfate (Ferrous Sulfate) 325 Mg Tablet.dr, 325 MG PO DAILY, (Reported) Folic Acid (Folic Acid) 1 Mg Tablet, 1 MG PO DAILY, (Reported) Furosemide (Furosemide) 80 Mg Tablet, 80 MG PO BID, (Reported) Isosorbide Mononitrate (Isosorbide Mononitrate ER) 60 Mg Tab.er.24h, 60 MG PO D AILY Nifedipine (Nifedipine ER) 90 Mg Tablet.er, 90 MG PO DAILY, (Reported) Sodium Bicarbonate (Sodium Bicarbonate) 650 Mg Tablet, 1,300 MG PO TID, (Reported) hydrALAZINE HCL (Hydralazine HCl) 100 Mg Tablet, 100 MG PO TID Scheduled PRN Docusate Sodium (Stool Softener) 100 Mg Capsule, 100 MG PO DAILY PRN for CONSTIPATION, (Reported) Allergies Coded Allergies: iodine (Verified Allergy, Severe, 06/23/21) MARTHA PAULSON M.D. Jun 27, 2021 12:43
[2021-06-27 13:12] VITALS: BP 145/88
[2021-06-27 14:00] VITALS: BP 134/64
--- NOTE | 2021-06-27 15:03 | IPNPDOC ---
Text Note Date of Service The patient was seen on 06/27/21. NOTE Subjective: Patient was seen bedside today. He denies having any complaints. He put out about 5 L of urine yesterday after getting the IV Lasix. He denies having any shortness of breath, headaches, dizziness, fever, chills, nausea, vomiting. Objective: General: Patient was laying in bed, does not appear to be in any acute distress. Cardiac: S1 and S2 appreciated, no murmurs appreciated. Lungs: Bilateral clear breath sounds appreciated, no crackles or wheezes. Abdomen: Obese, nontender, bowel sounds appreciated in all 4 quadrants. Extremities: Patient has a dressing on his left leg for his chronic ulcer, his legs look a lot better today. Still has minimal edema. Neurological: No focal deficits. Assessment/plan: Acute renal failure on chronic kidney disease: He did get IV Lasix 80 mg twice daily which led to putting out about 5 L of fluid yesterday. Already peed out a liter of fluid this morning by the time we saw him. Patient has a GFR less than 20% at baseline and he is back to his baseline. He is from [facility] and had a talk of need to needing to be on dialysis in the future. As he is relocating to this area he will need an IV access for future dialysis. Upon discharge will need nephrology consultation and 4 days to 1 week. Hypertension: Patient blood pressure is within acceptable rate systolics in 160s, given that he presented with hypertensive urgency. Will need to continue taking Coreg 25 mg twice daily, clonidine 0.1 mg twice daily, nifedipine 90 mg daily, hydralazine 100 mg 3 times daily with addition of furosemide 80 mg daily upon discharge. Anemia of chronic disease: Likely from his CKD. Patient has low hemoglobin around iron studies were done which shows low iron 19. Will give him iron supplementation. Congestive heart failure: Patient has his medical care from [facility] reports he has CHF. echo was not done during this admission. As per our records and echo from 2014 showed grade 2 diastolic dysfunction with severe left ventricular hypertrophy. VS,Fishbone, I+O VS, Fishbone, I+O Laboratory Tests 06/27/21 05:17 Vital Signs Date Time Temp Pulse Resp B/P (MAP) Pulse Ox O2 Delivery O2 Flow Rate FiO2 06/27/21 14:00 100.7 93 18 134/64 (87) 96 Room Air I&O- Last 24 Hours up to 6 AM 06/27/21 06:00 Intake Total 1860 ml Output Total 6400 ml Balance -4540 ml GME ATTESTATION GME ATTESTATION My faculty preceptor for this patient encounter was physically present during the encounter and was fully available. All aspects of the patient interview, examination, medical decision making process, and medical care plan development were reviewed and approved by the faculty preceptor. The faculty preceptor is aware and concurs with the plan as stated in the body of this note and will attest to such by his/her cosignature. Eder Jaimes MD Jun 27, 2021 15:03
--- NOTE | 2021-06-27 15:23 | IPNPDOC ---
Text Note Date of Service The patient was seen on 06/27/21. NOTE Subjective: 46-year-old male presented emergency room department for evaluation of a chronic left lower leg ulcer. He reports increasing pain, redness and warmth over the last 2 days. Seen and examined at bedside this morning. Complain of chronic left lower leg pain around the wound site, with some improvement. He denies loss of strength and sensation. Denies chest pain, sob, abd pain, n/v, problems with urination and bowel movements. Review of systems: 10 point review of system was negative except for what is noted in the HPI Physical exam: General: Lying in bed, no acute distress Head/Neck/Throat: Trachea midline, mucous membranes moist Eyes: Sclera anicteric, no erythema or discharge appreciated bilaterally Thorax: Normal respiratory effort on room air, lungs clear to auscultation bilaterally, no wheezes/rales/rhonchi Cardiovascular: Normal rate, regular rhythm, normal S1, S2; no S3, S4. Dorsalis pedis pulses are palpable bilaterally Abdomen: Bowel sounds present, soft/nontender/nondistended Genitourinary: No CVA tenderness, no Burris in place Musculoskeletal: Moving all extremities, no edema Skin: There is a left lower extremity wound over the medial posterior mid calf region; dressing was removed with no yellow discharge appreciated today. Neurologic: AAOx3, speech fluent and goal-directed, no focal deficits, grossly intact Labs: See below Imaging: Please see imaging section Assessment/plan: 46-year-old male with a past medical history of chronic kidney disease, hypertension, and congestive heart failure presented to the emergency room department for an evaluation of his chronic left lower extremity wound. Reported having increasing pain, redness and warmth of the last 2 days. 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 -evaluated by wound care team, plan for outpatient follow up. no need for surgery at this time. -Continue with Unasyn, based on wound cultures. If patient remains febrile we will broaden antibiotics. Repeat blood cultures #Chronic kidney disease stage IV -Follows animal attendants and trainers, and plan for graft in [facility]. Continue to monitor Cr. Dose meds appropriately. #CHF -No signs of acute of exacerbation. C/w carvedilol, hydralazine and Imdur -Lasix to be resumed #Hypertensive urgency -Resolved. Started on clonidine in addition to his ambulatory medications including hydralazine, Imdur, and nifedipine #Hyperlipidemia -Continue with statin therapy. DVT prophylaxis -Heparin subcu Disposition: Patient was ready for discharge, however spiked a fever 100.7. VS,Fishbone, I+O VS, Fishbone, I+O Laboratory Tests 06/27/21 05:17 Vital Signs Date Time Temp Pulse Resp B/P (MAP) Pulse Ox O2 Delivery O2 Flow Rate FiO2 06/27/21 14:00 100.7 93 18 134/64 (87) 96 Room Air I&O- Last 24 Hours up to 6 AM 06/27/21 06:00 Intake Total 1860 ml Output Total 6400 ml Balance -4540 ml MARTHA PAULSON M.D. Jun 27, 2021 15:23
[2021-06-27 18:11] VITALS: BP 164/101
[2021-06-27] MEDS: hydrOXYzine 10 MG TAB PO PRN (21:26)
[2021-06-27] MEDS: ATORVASTATIN 20 MG TAB PO SCH (21:28)
[2021-06-27 22:00] VITALS: BP 168/70
[2021-06-28] MEDS: AMPICILLIN SOD/SULBACTAM SOD 3 GM in D5W MINI-BAG PLUS 100 ML IV SCH (05:31)
[2021-06-28] MEDS: HEPARIN SOD (PORCINE) 5000UNITS/ML 1ML VIAL/SYRINGE SQ SCH ×2 (05:32→14:00)
[2021-06-28] MEDS: ACETAMINOPHEN TAB 650MG DOSE (2X325MG) PO SCH ×2 (05:32→12:08)
[2021-06-28 05:58] LABS: BASO % 0.6 % (0.0-1.0); EOS # 0.2 10^3/uL (0.0-0.5); EOS % 2.8 % (0.0-3.0); HEMOGLOBIN 9.6 g/dl (13.5-17.5); LYMPH # 1.1 10^3/uL (1.5-5.0); LYMPH % 16.3 % (24.0-44.0); MEAN CORPUSCULAR HEMOGLOBIN 27.5 pg (27.0-33.0); MEAN CORPUSCULAR VOLUME 88.8 fl (80.0-96.0); MONO # 0.6 10^3/uL (0.0-0.8); MONO % 8.9 % (2.0-8.0); NEUTROPHILS # 4.9 10^3/uL (1.5-8.5); PLATELET COUNT, AUTOMATED 199 10^3/uL (150-450); RED BLOOD COUNT 3.49 10^6/uL (4.30-6.10); WHITE BLOOD COUNT 6.9 10^3/uL (4.0-10.0)
[2021-06-28 06:00] VITALS: BP 138/84
[2021-06-28 06:28] LABS: CALCIUM LEVEL 7.6 MG/DL (8.5-10.1); CREATININE FOR GFR 3.3 MG/DL (0.70-1.30); GLOMERULAR FILTRATION RATE 21.8 (>60); MAGNESIUM LEVEL 1.9 MG/DL (1.8-2.4); PHOSPHORUS LEVEL 4.4 MG/DL (2.5-4.9); POTASSIUM SERUM 4.8 MEQ/L (3.5-5.1)
[2021-06-28] MEDS: SODIUM BICARBONATE 325 MG TAB PO SCH ×2 (08:26→16:19)
[2021-06-28] MEDS: ASPIRIN 81 MG CHEW TABLET PO SCH (08:26)
[2021-06-28] MEDS: (RENVELA) SEVELAMER **CARBONate** 800 MG TAB PO SCH ×2 (08:26→12:08)
[2021-06-28] MEDS: NIFEdipine 30 MG XL TAB PO SCH (08:26)
[2021-06-28] MEDS: ISOSORBIDE MON. (IMDUR) 30 MG XR TAB PO SCH (08:27)
[2021-06-28] MEDS: FERROUS SULFATE 325MG TAB PO SCH (08:27)
[2021-06-28] MEDS: FUROSEMIDE 80 MG TAB PO SCH (08:27)
[2021-06-28] MEDS: CALCIUM ACETATE 667MG GELCAP PO SCH ×2 (08:27→12:08)
[2021-06-28] MEDS: CARVedilol 12.5 MG TAB PO SCH (08:27)
[2021-06-28] MEDS: **hydrALAZINE** 50 MG TAB PO SCH ×2 (08:28→16:19)
[2021-06-28] MEDS: cloNIDine 0.1MG TABLET PO SCH ×2 (08:28→16:19)
[2021-06-28] MEDS: FOLIC ACID 1 MG TAB PO SCH (08:28)
[2021-06-28] MEDS ORDERED: AUGMENTIN 875 MG TAB PO SCH (09:00)
--- NOTE | 2021-06-28 10:52 | IPNPDOC ---
Text Note Date of Service The patient was seen on 06/28/21. VS,Aidenbone, I+O VS, Fishbone, I+O Laboratory Tests 06/28/21 05:20 Vital Signs Date Time Temp Pulse Resp B/P (MAP) Pulse Ox O2 Delivery O2 Flow Rate FiO2 06/28/21 08:27 92 06/28/21 08:26 138/84 06/28/21 06:00 97.9 21 96 Room Air I&O- Last 24 Hours up to 6 AM 06/28/21 06:00 Intake Total 2600 ml Output Total 4900 ml Balance -2300 ml MARTHA PAULSON M.D. Jun 28, 2021 10:52
[2021-06-28] MEDS: traMADol 50 MG TAB PO PRN (12:14)
--- NOTE | 2021-06-28 13:11 | IPNPDOC ---
Text Note Date of Service The patient was seen on 06/28/21. NOTE Subjective: Patient was seen bedside. He reports he had a temperature of 101 yesterday and that was the reason he discharged yesterday. He denies having any other complaints. Of breath, chills, nausea, vomiting, diarrhea. Objective: General: Patient was sitting in chair, does not appear to be in any apparent distress. Cardiac: S1 and S2 regular rate and rhythm, no murmurs appreciated. Lungs: Bilateral clear air entry, no wheezes or crackles appreciated. Abdomen: Obese abdomen, no tenderness on palpation positive bowel sounds appreciated in all 4 quadrants. Extremities: Patient has a wound on his left posterior r region below the calf. The wound is huge in size and does have granulation tissue and some pus noted. His other leg looks a lot better minimal edema. Neurological: No focal deficits appreciated. assessment/plan: Acute renal failure on CKD: Yesterday patient's Lasix was decreased from twice daily to daily, he still produced about 5 l of urine. Can continue the same dose upon discharge and medication dosage will be adjusted outpatient during the nephrology visit if needed. Hypertension: Today patient's blood pressures are in systolic 130s to 140s which is acceptable. We will continue the same regimen Fever: Patient had a fever of 100.7 yesterday. Blood cultures were drawn still pending. Likely his source of infection might be his foot at this point of time. As of now he is on Augmentin twice daily. He does not have any white count. Congestive heart failure: Follow-up with cardiology upon discharge. VS,Fishbone, I+O VS, Fishbone, I+O Laboratory Tests 06/28/21 05:20 Vital Signs Date Time Temp Pulse Resp B/P (MAP) Pulse Ox O2 Delivery O2 Flow Rate FiO2 06/28/21 12:14 18 06/28/21 08:27 92 06/28/21 08:26 138/84 06/28/21 06:00 97.9 96 Room Air I&O- Last 24 Hours up to 6 AM 06/28/21 05:59 Intake Total 3220 ml Output Total 5350 ml Balance -2130 ml GME ATTESTATION GME ATTESTATION My faculty preceptor for this patient encounter was physically present during the encounter and was fully available. All aspects of the patient interview, examination, medical decision making process, and medical care plan development were reviewed and approved by the faculty preceptor. The faculty preceptor is aware and concurs with the plan as stated in the body of this note and will attest to such by his/her cosignature. Eder Jaimes MD Jun 28, 2021 13:11
[2021-06-28 14:00] VITALS: BP 123/71
[2021-06-28 16:19] VITALS: BP 123/71
[2021-06-28] MEDS ORDERED: AMOX875T2 PO (16:23)
== END 2021-06-28 17:23 | disposition home or self-care (01) | DRG 197 ==
LOC: M ED 01:50 → M ED INP 01:51 → ENRESERV 05:53 → M MSPAV 06:25 → OBSVTOIN 06-24 15:36
PROVIDERS: ADMIT Internal Medicine; ATTEND Internal Medicine
DX: I87.2 Venous insufficiency (chronic) (peripheral) (principal); E87.2 Acidosis; N17.9 Acute kidney failure, unspecified; I13.0 Hypertensive heart and chronic kidney disease with heart failure and stage 1 through stage 4 chronic kidney disease, or unspecified chronic kidney disease; N18.4 Chronic kidney disease, stage 4 (severe); I50.9 Heart failure, unspecified; E66.01 Morbid (severe) obesity due to excess calories; I16.0 Hypertensive urgency; Z79.82 Long term (current) use of aspirin; Z79.899 Other long term (current) drug therapy; Z88.8 Allergy status to other drugs, medicaments and biological substances; E78.5 Hyperlipidemia, unspecified; D63.1 Anemia in chronic kidney disease

== ENCOUNTER 2021-07-03 14:37 | Emergency (ER) | payer OTHER ==
[~2021-07-03] VITALS: Ht 170.2 cm; Wt 139.3 kg
[2021-07-03 14:37] VITALS: BP 116/63
[~2021-07-03 14:37] MED LIST changes: +AMOX875T2 PO; +ASPI81CH33 PO; +ATOR40TA75 PO; +CALC667T2 PO; +CLONI1TA PO; +D 101000 PO; +FERR325T3 PO; +FOLI1TAB11 PO; +FURO80TA2 PO; +HYDR100T PO; +HYDR25TA PO; +ISOS1TAB35 PO; +ISOS1TAB36 PO; +MM S100C PO; +NIFE20CA PO; +NIFE90TA20 PO; +SODI650T PO
== END 2021-07-03 19:51 | disposition left against medical advice (07) ==
LOC: M ED 14:37
DX: Z53.21 Procedure and treatment not carried out due to patient leaving prior to being seen by health care provider (principal)

== ENCOUNTER 2021-07-04 10:52 | Emergency (ER) | payer OTHER ==
[2021-07-04 10:53] VITALS: BP 138/93
== END 2021-07-04 11:04 | disposition left against medical advice (07) ==
LOC: M ED 11:01
DX: Z53.21 Procedure and treatment not carried out due to patient leaving prior to being seen by health care provider (principal)

== ENCOUNTER 2021-07-13 01:02 | Inpatient (IN) | payer OTHER ==
[~2021-07-13] VITALS: Ht 170.2 cm; Wt 137.8 kg
[~2021-07-13 01:02] MED LIST changes: -AMLO5CAP45 PO; +AMLO5CAP53 PO; -BENA40TA5 PO; +BENA40TA84 PO
[2021-07-13] MEDS ORDERED: FUROSEMIDE 100MG/10ML VIAL (J1940) IV ONE (01:50)
[2021-07-13 02:24] LABS: BASO # 0.1 10^3/uL (0.0-0.2); BASO % 0.7 % (0.0-1.0); EOS # 0.2 10^3/uL (0.0-0.5); EOS % 2.5 % (0.0-3.0); HEMATOCRIT 27.2 % (42.0-52.0); HEMOGLOBIN 8.2 g/dl (13.5-17.5); LYMPH # 1.1 10^3/uL (1.5-5.0); LYMPH % 14.9 % (24.0-44.0); MEAN CORPUSCULAR HEMOGLOBIN 27.9 pg (27.0-33.0); MEAN CORPUSCULAR HGB CONC 30.1 g/dl (32.0-36.5); MEAN CORPUSCULAR VOLUME 92.5 fl (80.0-96.0); MONO # 0.6 10^3/uL (0.0-0.8); MONO % 7.3 % (2.0-8.0); NEUTROPHILS # 5.6 10^3/uL (1.5-8.5); NEUTROPHILS % 74.1 % (36.0-66.0); PLATELET COUNT, AUTOMATED 185 10^3/uL (150-450); RED BLOOD COUNT 2.94 10^6/uL (4.30-6.10); WHITE BLOOD COUNT 7.5 10^3/uL (4.0-10.0)
[2021-07-13 02:49] LABS: INR 1.03; PARTIAL THROMBOPLASTIN TIME 34.4 SECONDS (25.9-37.0); PROTHROMBIN TIME 13.9 SECONDS (12.7-14.5)
[2021-07-13 02:50] LABS: RSV AMPLIFICATION NEGATIVE (NEGATIVE)
[2021-07-13 02:52] LABS: CK-MB VALUE MASS 3.4 NG/ML (<3.6); MB/CK RELATIVE INDEX 1.17 (< OR =4)
[2021-07-13 02:54] LABS: ALBUMIN 3.5 GM/DL (3.2-5.2); BILIRUBIN,DIRECT 0.1 MG/DL (0.0-0.2); BILIRUBIN,TOTAL 0.4 MG/DL (0.2-1.0); CALCIUM LEVEL 7.9 MG/DL (8.5-10.1); CREATININE FOR GFR 3.98 MG/DL (0.70-1.30); GLOMERULAR FILTRATION RATE 17.6 (>60); TOTAL PROTEIN 8.1 GM/DL (6.4-8.2)
[2021-07-13] MEDS ORDERED: MORPHINE 4 MG/ML 1ML VIAL/SYRINGE (J2270) IV PRN (03:20)
[2021-07-13 04:13] LABS: CK-MB VALUE MASS 3.2 NG/ML (<3.6); MB/CK RELATIVE INDEX 0.95 (< OR =4)
[2021-07-13] MEDS ORDERED: ISOS1TAB36 PO (06:28)
[2021-07-13] MEDS ORDERED: FURO80TA2 PO (06:28)
[2021-07-13] MEDS ORDERED: ASPI-161 PO (06:28)
[2021-07-13] MEDS ORDERED: HYDR100T26 PO (06:28)
[2021-07-13] MEDS ORDERED: CLONI1TA PO (06:28)
[2021-07-13] MEDS ORDERED: ERGO500029 PO (06:28)
[2021-07-13] MEDS ORDERED: HOME MED LIST COMPLETE! XX SCH (06:30)
[2021-07-13] MEDS ORDERED: DOCUSATE SODIUM 100MG CAPSULE PO PRN (07:10)
[2021-07-13] MEDS ORDERED: cloNIDine 0.1MG TABLET PO SCH (09:00)
[2021-07-13] MEDS ORDERED: NIFEdipine 30 MG XL TAB PO SCH (09:00)
[2021-07-13] MEDS: CARVedilol 12.5 MG TAB PO SCH ×2 (09:07→21:28)
[2021-07-13 09:10] VITALS: BP 171/105
[2021-07-13] MEDS: ISOSORBIDE MON. (IMDUR) 60 MG XR TAB PO SCH (10:00)
[2021-07-13] MEDS: **hydrALAZINE** 50 MG TAB PO SCH ×3 (10:00→21:29)
[2021-07-13] MEDS: CALCIUM ACETATE 667MG GELCAP PO SCH ×3 (10:00→17:41)
[2021-07-13] MEDS: ASPIRIN 81MG ENTERIC TABLET PO SCH (10:33)
[2021-07-13] MEDS: FERROUS SULFATE 325MG TAB PO SCH (10:33)
[2021-07-13] MEDS: SODIUM BICARBONATE 325 MG TAB PO SCH ×3 (10:33→21:28)
[2021-07-13] MEDS: FOLIC ACID 1 MG TAB PO SCH (10:33)
[2021-07-13 11:00] VITALS: BP 145/91
[2021-07-13] MEDS ORDERED: oxyCODONE 5MG TAB PO ONE (11:20)
[2021-07-13] MEDS ORDERED: FUROSEMIDE 40MG/4ML VIAL (J1940) IV SCH ×2 (12:00)
[2021-07-13] MEDS: FUROSEMIDE 40MG/4ML VIAL (J1940) IV SCH ×3 (12:02→23:57)
[2021-07-13 14:00] VITALS: BP 170/96
[2021-07-13] MEDS: HEPARIN SOD (PORCINE) 5000UNITS/ML 1ML VIAL/SYRINGE SC SCH ×2 (14:00→21:29)
[2021-07-13] MEDS: cloNIDine 0.1MG TABLET PO SCH ×2 (17:41→21:29)
[2021-07-13 21:18] VITALS: BP 130/86
[2021-07-13] MEDS: ATORVASTATIN 20 MG TAB PO SCH (21:29)
[2021-07-13] MEDS: oxyCODONE 5MG TAB PO PRN (22:12)
[2021-07-13] MEDS: ACETAMINOPHEN TAB 650MG DOSE (2X325MG) PO PRN (22:12)
[2021-07-14] MEDS: HEPARIN SOD (PORCINE) 5000UNITS/ML 1ML VIAL/SYRINGE SC SCH ×3 (05:18→21:07)
[2021-07-14 06:00] VITALS: BP 128/88
[2021-07-14 08:17] LABS: HEMATOCRIT 32.3 % (42.0-52.0); HEMOGLOBIN 9.8 g/dl (13.5-17.5); MEAN CORPUSCULAR HEMOGLOBIN 27.7 pg (27.0-33.0); MEAN CORPUSCULAR HGB CONC 30.3 g/dl (32.0-36.5); MEAN CORPUSCULAR VOLUME 91.2 fl (80.0-96.0); PLATELET COUNT, AUTOMATED 193 10^3/uL (150-450); RED BLOOD COUNT 3.54 10^6/uL (4.30-6.10); WHITE BLOOD COUNT 6.9 10^3/uL (4.0-10.0)
[2021-07-14 08:33] LABS: CREATININE FOR GFR 3.9 MG/DL (0.70-1.30); PHOSPHORUS LEVEL 5.3 MG/DL (2.5-4.9); POTASSIUM SERUM 4.7 MEQ/L (3.5-5.1)
[2021-07-14] MEDS: FUROSEMIDE 40MG/4ML VIAL (J1940) IV SCH ×2 (09:38→17:49)
[2021-07-14] MEDS: oxyCODONE 5MG TAB PO PRN ×2 (09:39→18:57)
[2021-07-14] MEDS: FERROUS SULFATE 325MG TAB PO SCH (09:39)
[2021-07-14] MEDS: CARVedilol 12.5 MG TAB PO SCH ×2 (09:40→21:07)
[2021-07-14] MEDS: ISOSORBIDE MON. (IMDUR) 60 MG XR TAB PO SCH (09:40)
[2021-07-14] MEDS: ASPIRIN 81MG ENTERIC TABLET PO SCH (09:40)
[2021-07-14] MEDS: cloNIDine 0.1MG TABLET PO SCH ×3 (09:41→21:07)
[2021-07-14] MEDS: **hydrALAZINE** 50 MG TAB PO SCH ×3 (09:41→21:06)
[2021-07-14] MEDS: FOLIC ACID 1 MG TAB PO SCH (09:41)
[2021-07-14] MEDS: SODIUM BICARBONATE 325 MG TAB PO SCH ×3 (09:42→21:07)
[2021-07-14] MEDS: CALCIUM ACETATE 667MG GELCAP PO SCH ×3 (09:42→17:50)
[2021-07-14] MEDS ORDERED: oxyCODONE 5MG TAB PO ONE (10:35)
[2021-07-14 14:00] VITALS: BP 140/78
[2021-07-14] MEDS: (RENVELA) SEVELAMER **CARBONate** 800 MG TAB PO SCH (17:50)
[2021-07-14] MEDS: ATORVASTATIN 20 MG TAB PO SCH (21:06)
[2021-07-14 22:00] VITALS: BP 132/72
[2021-07-15] MEDS: FUROSEMIDE 40MG/4ML VIAL (J1940) IV SCH ×3 (00:16→15:42)
[2021-07-15] MEDS: ACETAMINOPHEN TAB 650MG DOSE (2X325MG) PO PRN (04:40)
[2021-07-15] MEDS: HEPARIN SOD (PORCINE) 5000UNITS/ML 1ML VIAL/SYRINGE SC SCH ×2 (05:43→13:32)
[2021-07-15 06:00] VITALS: BP 118/78
[2021-07-15 07:38] LABS: HEMATOCRIT 31.1 % (42.0-52.0); HEMOGLOBIN 9.6 g/dl (13.5-17.5); MEAN CORPUSCULAR HEMOGLOBIN 27.9 pg (27.0-33.0); MEAN CORPUSCULAR HGB CONC 30.9 g/dl (32.0-36.5); MEAN CORPUSCULAR VOLUME 90.4 fl (80.0-96.0); PLATELET COUNT, AUTOMATED 178 10^3/uL (150-450); RED BLOOD COUNT 3.44 10^6/uL (4.30-6.10); WHITE BLOOD COUNT 7.6 10^3/uL (4.0-10.0)
[2021-07-15 08:09] LABS: CALCIUM LEVEL 7.9 MG/DL (8.5-10.1); CREATININE FOR GFR 3.87 MG/DL (0.70-1.30); GLOMERULAR FILTRATION RATE 18.1 (>60); MAGNESIUM LEVEL 1.9 MG/DL (1.8-2.4); PHOSPHORUS LEVEL 4.9 MG/DL (2.5-4.9); POTASSIUM SERUM 4.7 MEQ/L (3.5-5.1)
[2021-07-15] MEDS: ISOSORBIDE MON. (IMDUR) 60 MG XR TAB PO SCH (08:31)
[2021-07-15] MEDS: **hydrALAZINE** 50 MG TAB PO SCH ×2 (08:32→15:43)
[2021-07-15] MEDS: CARVedilol 12.5 MG TAB PO SCH (08:32)
[2021-07-15] MEDS: FOLIC ACID 1 MG TAB PO SCH (08:32)
[2021-07-15] MEDS: (RENVELA) SEVELAMER **CARBONate** 800 MG TAB PO SCH ×2 (08:32→13:01)
[2021-07-15] MEDS: cloNIDine 0.1MG TABLET PO SCH ×2 (08:33→15:42)
[2021-07-15] MEDS: CALCIUM ACETATE 667MG GELCAP PO SCH ×2 (08:33→13:01)
[2021-07-15] MEDS: ASPIRIN 81MG ENTERIC TABLET PO SCH (08:33)
[2021-07-15] MEDS: SODIUM BICARBONATE 325 MG TAB PO SCH ×2 (08:33→15:43)
[2021-07-15] MEDS: FERROUS SULFATE 325MG TAB PO SCH (08:33)
[2021-07-15] MEDS ORDERED: AMLO1TAB25 PO (08:41)
[2021-07-15] MEDS ORDERED: FURO80TA2 PO (11:54)
[2021-07-15] MEDS ORDERED: FERR325T3 PO (11:54)
[2021-07-15 15:43] VITALS: BP 120/76
[2021-07-19] MEDS ORDERED: VITAMIN D 50,000 UNITS CAPSULE (ERGOCALCIFEROL 1.25MG) PO SCH (09:00)
== END 2021-07-15 17:25 | disposition home or self-care (01) | DRG 194 ==
LOC: EDBD 01:02 → M ED 01:02 → M ED INP 05:52 → ENRESERV 08:05 → M MS5PR 09:10
PROVIDERS: ADMIT Family Medicine; ATTEND Internal Medicine
DX: I13.0 Hypertensive heart and chronic kidney disease with heart failure and stage 1 through stage 4 chronic kidney disease, or unspecified chronic kidney disease (principal); E87.2 Acidosis; N18.4 Chronic kidney disease, stage 4 (severe); I50.23 Acute on chronic systolic (congestive) heart failure; L97.929 Non-pressure chronic ulcer of unspecified part of left lower leg with unspecified severity; E66.01 Morbid (severe) obesity due to excess calories; Z68.42 Body mass index [BMI] 45.0-49.9, adult; N25.81 Secondary hyperparathyroidism of renal origin; E78.5 Hyperlipidemia, unspecified; D63.1 Anemia in chronic kidney disease; F17.290 Nicotine dependence, other tobacco product, uncomplicated; G47.33 Obstructive sleep apnea (adult) (pediatric); I87.2 Venous insufficiency (chronic) (peripheral); Z79.82 Long term (current) use of aspirin; Z79.899 Other long term (current) drug therapy; Z88.8 Allergy status to other drugs, medicaments and biological substances; Z20.822 Contact with and (suspected) exposure to COVID-19; Z91.14 Patient's other noncompliance with medication regimen; I16.0 Hypertensive urgency

== ENCOUNTER → 2021-07-24 | Outpatient (POV) | payer OTHER ==
[~2021-07-24] VITALS: Ht 170.2 cm; Wt 131.8 kg
[~2021-07-24] MED LIST changes: +ASPI-161 PO; +ERGO500029 PO; +HYDR100T26 PO
[2021-07-24 09:50] VITALS: BP 200/110
== END ==
LOC: M IRPOV 09:40
PROVIDERS: ATTEND Radiology Diagnostic Radiology
DX: L97.229 Non-pressure chronic ulcer of left calf with unspecified severity (principal); R60.0 Localized edema; Z79.82 Long term (current) use of aspirin; Z79.899 Other long term (current) drug therapy; Z91.048 Other nonmedicinal substance allergy status

== ENCOUNTER → 2021-08-01 | Outpatient (REF) | payer OTHER ==
[2021-08-01 17:40] LABS: COMPLEMENT C3 109 MG/DL (90-180); COMPLEMENT C4 29 MG/DL (10-40)
== END ==
LOC: M LAB REF 16:58
PROVIDERS: ATTEND Internal Medicine Nephrology
DX: R80.1 Persistent proteinuria, unspecified (principal)

== ENCOUNTER → 2021-08-08 | Outpatient (CLI) | payer OTHER ==
[~2021-08-08] MED LIST changes: +LIDOCAINE 1% MDV 20ML VIAL As Ordered ONE; +LIDOCAINE 2% MDV 20ML VIAL As Ordered ONE; +MIDAZOLAM INJ 2MG/2ML VIAL (J2250 PER 1MG) As Ordered ONE; +NS 1,000 ML IV SCH; +PROMETHAZINE INJ 25 MG/ML VIAL (J2550) As Ordered ONE; +diphenhydrAMINE 50MG/ML VIAL (J1200) As Ordered ONE; +fentaNYL 100 MCG/2 ML INJECTION As Ordered ONE
[2021-08-08 10:45] VITALS: BP 111/58
== END ==
LOC: M IRPRO 07:17
PROVIDERS: ATTEND Radiology Diagnostic Radiology
DX: I87.2 Venous insufficiency (chronic) (peripheral) (principal); L97.929 Non-pressure chronic ulcer of unspecified part of left lower leg with unspecified severity; M79.605 Pain in left leg
CPT/HCPCS: 36465; 36478; 99152; 99153; J2250; J3010

== ENCOUNTER → 2021-08-15 | Outpatient (CLI) | payer OTHER ==
[~2021-08-15] MED LIST changes: -LIDOCAINE 1% MDV 20ML VIAL As Ordered ONE; -LIDOCAINE 2% MDV 20ML VIAL As Ordered ONE; -MIDAZOLAM INJ 2MG/2ML VIAL (J2250 PER 1MG) As Ordered ONE; -NS 1,000 ML IV SCH; -PROMETHAZINE INJ 25 MG/ML VIAL (J2550) As Ordered ONE; -diphenhydrAMINE 50MG/ML VIAL (J1200) As Ordered ONE; -fentaNYL 100 MCG/2 ML INJECTION As Ordered ONE
== END ==
LOC: M RAD 09:24
PROVIDERS: ATTEND Radiology Diagnostic Radiology
DX: L97.909 Non-pressure chronic ulcer of unspecified part of unspecified lower leg with unspecified severity (principal)

== ENCOUNTER → 2021-09-04 | Outpatient (POV) | payer OTHER ==
[~2021-09-04] VITALS: Ht 170.2 cm; Wt 134.0 kg
[2021-09-04 09:05] VITALS: BP 145/93
== END ==
LOC: M IRPOV 08:57
PROVIDERS: ATTEND Radiology Diagnostic Radiology
DX: Z48.812 Encounter for surgical aftercare following surgery on the circulatory system (principal); Z91.048 Other nonmedicinal substance allergy status

== ENCOUNTER 2022-09-26 11:00 | Inpatient (IN) | payer OTHER ==
[~2022-09-26] VITALS: Ht 170.2 cm; Wt 153.2 kg
[2022-09-26] VITALS (7 sets, daily range): BP systolic 129–162; BP diastolic 60–101; O2SAT 92–97
[2022-09-26] MEDS ORDERED: FUROSEMIDE 100MG/10ML VIAL IV ONE (12:30)
[2022-09-26 12:39] LABS: BASO # 0.1 10^3/uL (0.0-0.2); BASO % 0.6 % (0.0-1.0); EOS # 0.4 10^3/uL (0.0-0.5); EOS % 4.5 % (0.0-3.0); HEMATOCRIT 29.8 % (42.0-52.0); HEMOGLOBIN 9.1 g/dl (13.5-17.5); LYMPH # 1.4 10^3/uL (1.5-5.0); LYMPH % 15.1 % (24.0-44.0); MEAN CORPUSCULAR HGB CONC 30.5 g/dl (32.0-36.5); MEAN CORPUSCULAR VOLUME 91.7 fl (80.0-96.0); MONO # 0.8 10^3/uL (0.0-0.8); MONO % 9.2 % (2.0-8.0); NEUTROPHILS # 6.3 10^3/uL (1.5-8.5); NEUTROPHILS % 69.9 % (36.0-66.0); PLATELET COUNT, AUTOMATED 123 10^3/uL (150-450); RED BLOOD COUNT 3.25 10^6/uL (4.30-6.10)
[2022-09-26 12:44] LABS: RSV AMPLIFICATION NEGATIVE (NEGATIVE)
[2022-09-26 12:48] LABS: INR 1.07; PROTHROMBIN TIME 14.1 SECONDS (12.5-14.5)
[2022-09-26 12:49] LABS: PARTIAL THROMBOPLASTIN TIME 33.1 SECONDS (24.8-34.2)
[2022-09-26] MEDS ORDERED: ISOSORBIDE MON. (IMDUR) 60MG XR TAB PO ONE (13:20)
[2022-09-26] MEDS ORDERED: cloNIDine 0.1MG TABLET PO ONE (13:20)
[2022-09-26 14:14] LABS: ALBUMIN 3.3 G/DL (3.2-5.2); BILIRUBIN,DIRECT 0.1 MG/DL (<0.4); BILIRUBIN,TOTAL 0.3 MG/DL (0.3-1.2); CALCIUM LEVEL 4.7 MG/DL (8.5-10.1); CK-MB VALUE MASS 6.9 NG/ML (<3.6); CREATININE FOR GFR 8.43 MG/DL (0.70-1.30); FREE T4 1.12 NG/DL (0.89-1.76); GLOMERULAR FILTRATION RATE 7.3 (>60); MB/CK RELATIVE INDEX 0.14 (< OR =4); POTASSIUM SERUM 5.3 MMOL/L (3.5-5.1); THYROID STIMULATING HORMONE 2.235 uIU/ML (0.55-4.78); TOTAL PROTEIN 8.1 G/DL (5.7-8.2)
[2022-09-26 14:54] LABS: APPEARANCE, URINE CLEAR (CLEAR); BACTERIA, URINE AUTO NEGATIVE (NEGATIVE); BILIRUBIN, URINE AUTO NEGATIVE (NEGATIVE); BLOOD, URINE BLOOD 2+ (NEGATIVE); COLOR, URINE STRAW (YELLOW); GLUCOSE, URINE (UA) AUTO NEGATIVE (NEGATIVE); KETONE, URINE AUTO NEGATIVE (NEGATIVE); LEUKOCYTE ESTERASE, URINE AUTO NEGATIVE (NEGATIVE); MUCUS, URINE SMALL (NEGATIVE); NITRITE, URINE AUTO NEGATIVE (NEGATIVE); PROTEIN, URINE AUTO 3+ mg/dL (NEGATIVE); RBC, URINE AUTO 1 /HPF (0-3); SPECIFIC GRAVITY URINE AUTO 1.009 (1.002-1.035); SQUAMOUS EPITHELIAL CELL UR AU 0 /HPF (0-6); UROBILINOGEN, URINE AUTO 0.2 mg/dL (0.0-2.0); WBC, URINE AUTO 1 /HPF (0-3)
[2022-09-26 15:07] LABS: CK-MB VALUE MASS 6.9 NG/ML (<3.6)
[2022-09-26 15:11] LABS: MAGNESIUM LEVEL 1.5 MG/DL (1.8-2.4)
[2022-09-26 15:20] LABS: MB/CK RELATIVE INDEX 0.15 (< OR =4)
[2022-09-26] MEDS ORDERED: CALCIUM GLUCONATE 1,000 MG in D5W MINI-BAG PLUS 100 ML IV ONE ×3 (15:20→16:30)
[2022-09-26] MEDS ORDERED: FERR1TAB8 PO (16:43)
[2022-09-26] MEDS ORDERED: TORS100T PO (16:43)
[2022-09-26] MEDS ORDERED: AMLO1TAB25 PO (16:43)
[2022-09-26] MEDS ORDERED: HOME MED LIST COMPLETE! XX SCH (16:45)
[2022-09-26 16:52] LABS: PHOSPHORUS LEVEL 9.9 MG/DL (2.5-4.9)
[2022-09-26] MEDS ORDERED: DOCUSATE SODIUM 100MG CAPSULE PO PRN (17:00)
[2022-09-26] MEDS: FERROUS SULFATE 325MG TAB PO SCH (18:02)
[2022-09-26] MEDS: FOLIC ACID 1MG TAB PO SCH (18:02)
[2022-09-26] MEDS: ASPIRIN 81MG ENTERIC TABLET PO SCH (18:02)
[2022-09-26] MEDS: MAG SULF 1GM/100ML (MAG RUN) 1 GM in IV 1 EA IV SCH ×3 (18:03→22:36)
[2022-09-26] MEDS: LR 1,000 ML IV SCH (18:03)
[2022-09-26 18:33] LABS: HEMOGLOBIN A1c 5.5 % (4.0-6.0)
[2022-09-26 18:41] LABS: POTASSIUM SERUM 5.1 MMOL/L (3.5-5.1)
[2022-09-26 18:48] LABS: CHOLESTEROL RISK RATIO 4.24 (<5); HDL CHOLESTEROL 26.6 MG/DL (>40); NON-HDL-C 86.4 MG/DL
[2022-09-26] MEDS: CALCIUM GLUCONATE 1,000 MG in D5W MINI-BAG PLUS 100 ML IV SCH ×2 (20:06→21:25)
[2022-09-26] MEDS: CALCIUM ACETATE 667MG GELCAP PO SCH (20:22)
[2022-09-26] MEDS: **hydrALAZINE** 50 MG TAB PO SCH (20:24)
[2022-09-26] MEDS: CARVedilol 12.5 MG TAB PO SCH (20:24)
[2022-09-26] MEDS: SODIUM BICARBONATE 325 MG TAB PO SCH (20:25)
[2022-09-26] MEDS: ATORVASTATIN 20 MG TAB PO SCH (20:25)
[2022-09-26] MEDS: cloNIDine 0.1MG TABLET PO SCH (20:25)
[2022-09-26] MEDS: HEPARIN SOD (PORCINE) 5000UNITS/ML 1ML VIAL/SYRINGE SQ SCH ×2 (20:25→20:27)
[2022-09-26] MEDS: IPRATROPIUM 0.5MG/ALBUTEROL 2.5MG INH SOL UD 3ML (DUONEB) NEB SCH (20:44)
[2022-09-26] MEDS ORDERED: SODIUM CHLORIDE NASAL 0.65% SPRAY BTL (OCEAN) PRN (23:30)
[2022-09-27] VITALS (10 sets, daily range): BP systolic 104–158; BP diastolic 51–98; O2SAT 94–97
[2022-09-27 00:35] LABS: POTASSIUM SERUM 4.5 MMOL/L (3.5-5.1)
[2022-09-27] MEDS: LR 1,000 ML IV SCH (01:41)
[2022-09-27] MEDS: CALCIUM GLUCONATE 1,000 MG in D5W MINI-BAG PLUS 100 ML IV SCH ×4 (02:11→19:30)
[2022-09-27 04:41] LABS: BASO # 0.1 10^3/uL (0.0-0.2); BASO % 0.6 % (0.0-1.0); EOS # 0.3 10^3/uL (0.0-0.5); EOS % 3.1 % (0.0-3.0); HEMATOCRIT 28.3 % (42.0-52.0); HEMOGLOBIN 8.4 g/dl (13.5-17.5); LYMPH # 1.1 10^3/uL (1.5-5.0); LYMPH % 10.9 % (24.0-44.0); MEAN CORPUSCULAR HEMOGLOBIN 27.5 pg (27.0-33.0); MEAN CORPUSCULAR HGB CONC 29.7 g/dl (32.0-36.5); MEAN CORPUSCULAR VOLUME 92.8 fl (80.0-96.0); MONO # 0.8 10^3/uL (0.0-0.8); MONO % 7.6 % (2.0-8.0); NEUTROPHILS # 7.6 10^3/uL (1.5-8.5); NEUTROPHILS % 77.2 % (36.0-66.0); PLATELET COUNT, AUTOMATED 177 10^3/uL (150-450); RED BLOOD COUNT 3.05 10^6/uL (4.30-6.10); WHITE BLOOD COUNT 9.9 10^3/uL (4.0-10.0)
[2022-09-27 05:23] LABS: CALCIUM LEVEL 5.8 MG/DL (8.5-10.1); CREATININE FOR GFR 7.99 MG/DL (0.70-1.30); GLOMERULAR FILTRATION RATE 7.8 (>60); POTASSIUM SERUM 5.1 MMOL/L (3.5-5.1)
[2022-09-27] MEDS: IPRATROPIUM 0.5MG/ALBUTEROL 2.5MG INH SOL UD 3ML (DUONEB) NEB SCH ×4 (07:24→20:56)
[2022-09-27] MEDS ORDERED: CALCIUM GLUCONATE 1,000 MG in D5W MINI-BAG PLUS 100 ML IV ONE (08:00)
[2022-09-27] MEDS ORDERED: SODIUM CHLORIDE 0.9% 1000ML IV PRN (08:25)
[2022-09-27] MEDS ORDERED: HEPARIN 1,000UNITS/ML 10ML VIAL (FOR RADIOLOGY & DIALYSIS ONLY) IV PRN (08:25)
[2022-09-27] MEDS ORDERED: HEPARIN 1,000UNITS/ML 10ML VIAL (FOR RADIOLOGY & DIALYSIS ONLY) XX SCH (08:25)
[2022-09-27] MEDS: HEPARIN SOD (PORCINE) 5000UNITS/ML 1ML VIAL/SYRINGE SQ SCH ×4 (09:00→21:00)
[2022-09-27] MEDS: cloNIDine 0.1MG TABLET PO SCH ×2 (09:20→21:13)
[2022-09-27] MEDS: CARVedilol 12.5 MG TAB PO SCH ×2 (09:20→21:14)
[2022-09-27] MEDS: **hydrALAZINE** 50 MG TAB PO SCH ×3 (09:21→21:14)
[2022-09-27] MEDS: CALCIUM ACETATE 667MG GELCAP PO SCH ×3 (09:21→19:30)
[2022-09-27] MEDS: FOLIC ACID 1MG TAB PO SCH (09:21)
[2022-09-27] MEDS: FERROUS SULFATE 325MG TAB PO SCH (09:21)
[2022-09-27] MEDS: ASPIRIN 81MG ENTERIC TABLET PO SCH (09:22)
[2022-09-27] MEDS: SODIUM BICARBONATE 325 MG TAB PO SCH ×3 (09:22→21:13)
[2022-09-27] MEDS: ISOSORBIDE MON. (IMDUR) 60MG XR TAB PO SCH (10:05)
[2022-09-27 12:25] LABS: HEPATITIS B SURFACE ANTIBODY NEGATIVE (POSITIVE)
[2022-09-27 12:39] LABS: HEPATITIS B SURFACE ANTIGEN NEGATIVE (NEGATIVE)
[2022-09-27 12:59] LABS: HEPATITIS B CORE ANTIBODY IGM NEGATIVE (NEGATIVE); HEPATITIS C VIRUS ABY INDEX 0.1 INDEX (<0.8)
[2022-09-27] MEDS ORDERED: HEPARIN 1,000UNITS/ML 10ML VIAL (FOR RADIOLOGY & DIALYSIS ONLY) As Ordered ONE (13:40)
[2022-09-27] MEDS ORDERED: ceFAZolin SOD 2 GM in IV 1 EA IV ONE (13:40)
[2022-09-27] MEDS ORDERED: LIDOCAINE 1% MDV 20ML VIAL As Ordered ONE (13:40)
[2022-09-27] MEDS ORDERED: ceFAZolin SOD 1 GM in D5W MINI-BAG PLUS 50 ML IV ONE (13:40)
[2022-09-27] MEDS ORDERED: MIDAZOLAM INJ 2MG/2ML VIAL As Ordered ONE (13:44)
[2022-09-27] MEDS ORDERED: fentaNYL 100 MCG/2 ML INJECTION As Ordered ONE (13:44)
[2022-09-27] MEDS ORDERED: ceFAZolin 1GM VIAL As Ordered ONE (13:45)
[2022-09-27] MEDS ORDERED: ceFAZolin 2 GM/D5W 50 ML IV BAG As Ordered ONE (13:45)
[2022-09-27] MEDS ORDERED: ACETAMINOPHEN TAB 650MG DOSE (2X325MG) PO ONE (19:45)
[2022-09-27 19:49] LABS: MAGNESIUM LEVEL 1.7 MG/DL (1.8-2.4); POTASSIUM SERUM 4.5 MMOL/L (3.5-5.1)
[2022-09-27] MEDS: ATORVASTATIN 20 MG TAB PO SCH (21:14)
[2022-09-28] VITALS (7 sets, daily range): BP systolic 131–163; BP diastolic 79–92; O2SAT 93–96
[2022-09-28 01:28] LABS: MAGNESIUM LEVEL 1.6 MG/DL (1.8-2.4); POTASSIUM SERUM 4.3 MMOL/L (3.5-5.1)
[2022-09-28 05:43] LABS: BASO % 0.3 % (0.0-1.0); EOS # 0.2 10^3/uL (0.0-0.5); HEMATOCRIT 27.9 % (42.0-52.0); HEMOGLOBIN 8.5 g/dl (13.5-17.5); LYMPH # 0.9 10^3/uL (1.5-5.0); LYMPH % 9.6 % (24.0-44.0); MEAN CORPUSCULAR HGB CONC 30.5 g/dl (32.0-36.5); MEAN CORPUSCULAR VOLUME 91.8 fl (80.0-96.0); MONO # 0.7 10^3/uL (0.0-0.8); NEUTROPHILS # 7.5 10^3/uL (1.5-8.5); NEUTROPHILS % 80.7 % (36.0-66.0); PLATELET COUNT, AUTOMATED 172 10^3/uL (150-450); RED BLOOD COUNT 3.04 10^6/uL (4.30-6.10); WHITE BLOOD COUNT 9.3 10^3/uL (4.0-10.0)
[2022-09-28 06:08] LABS: ALBUMIN 3.1 G/DL (3.2-5.2); CALCIUM LEVEL 6.6 MG/DL (8.5-10.1); CREATININE FOR GFR 6.17 MG/DL (0.70-1.30); GLOMERULAR FILTRATION RATE 10.5 (>60); MAGNESIUM LEVEL 1.6 MG/DL (1.8-2.4); POTASSIUM SERUM 4.9 MMOL/L (3.5-5.1)
[2022-09-28] MEDS: IPRATROPIUM 0.5MG/ALBUTEROL 2.5MG INH SOL UD 3ML (DUONEB) NEB SCH ×4 (07:05→21:12)
[2022-09-28] MEDS: HEPARIN SOD (PORCINE) 5000UNITS/ML 1ML VIAL/SYRINGE SQ SCH ×4 (07:45→23:00)
[2022-09-28] MEDS: CALCIUM ACETATE 667MG GELCAP PO SCH ×3 (07:46→17:05)
[2022-09-28] MEDS: FERROUS SULFATE 325MG TAB PO SCH (07:46)
[2022-09-28] MEDS: SODIUM BICARBONATE 325 MG TAB PO SCH (07:47)
[2022-09-28] MEDS: FOLIC ACID 1MG TAB PO SCH (07:48)
[2022-09-28] MEDS: CARVedilol 12.5 MG TAB PO SCH ×2 (07:48→22:58)
[2022-09-28] MEDS: **hydrALAZINE** 50 MG TAB PO SCH (07:48)
[2022-09-28] MEDS: cloNIDine 0.1MG TABLET PO SCH ×2 (07:49→23:00)
[2022-09-28] MEDS: ASPIRIN 81MG ENTERIC TABLET PO SCH (07:49)
[2022-09-28] MEDS: ISOSORBIDE MON. (IMDUR) 60MG XR TAB PO SCH (07:51)
[2022-09-28] MEDS ORDERED: MAG SULF 1GM/100ML (MAG RUN) 1 GM in IV 1 EA IV ONE (08:00)
[2022-09-28] MEDS ORDERED: VITAMIN D 50,000 UNITS CAPSULE (ERGOCALCIFEROL 1.25MG) PO SCH (09:00)
[2022-09-28] MEDS ORDERED: HEPARIN 1,000UNITS/ML 10ML VIAL (FOR RADIOLOGY & DIALYSIS ONLY) XX SCH (09:00)
[2022-09-28] MEDS ORDERED: SODIUM CHLORIDE 0.9% 1000ML IV PRN (09:00)
[2022-09-28] MEDS ORDERED: HEPARIN 1,000UNITS/ML 10ML VIAL (FOR RADIOLOGY & DIALYSIS ONLY) IV PRN (09:00)
[2022-09-28 12:46] LABS: MAGNESIUM LEVEL 1.8 MG/DL (1.8-2.4); POTASSIUM SERUM 4.2 MMOL/L (3.5-5.1)
[2022-09-28] MEDS: ATORVASTATIN 20 MG TAB PO SCH (22:59)
[2022-09-29 06:00] VITALS: BP 110/76
[2022-09-29 06:25] LABS: BASO # 0.1 10^3/uL (0.0-0.2); BASO % 0.8 % (0.0-1.0); EOS # 0.2 10^3/uL (0.0-0.5); EOS % 2.4 % (0.0-3.0); HEMATOCRIT 28.9 % (42.0-52.0); HEMOGLOBIN 8.8 g/dl (13.5-17.5); LYMPH # 1.2 10^3/uL (1.5-5.0); LYMPH % 13.6 % (24.0-44.0); MEAN CORPUSCULAR HEMOGLOBIN 27.9 pg (27.0-33.0); MEAN CORPUSCULAR HGB CONC 30.4 g/dl (32.0-36.5); MEAN CORPUSCULAR VOLUME 91.7 fl (80.0-96.0); MONO # 0.9 10^3/uL (0.0-0.8); MONO % 10.4 % (2.0-8.0); NEUTROPHILS # 6.5 10^3/uL (1.5-8.5); NEUTROPHILS % 72.2 % (36.0-66.0); PLATELET COUNT, AUTOMATED 173 10^3/uL (150-450); RED BLOOD COUNT 3.15 10^6/uL (4.30-6.10); WHITE BLOOD COUNT 9.1 10^3/uL (4.0-10.0)
[2022-09-29 06:44] LABS: ALBUMIN 3.2 G/DL (3.2-5.2); CALCIUM LEVEL 6.1 MG/DL (8.5-10.1); CREATININE FOR GFR 6.07 MG/DL (0.70-1.30); GLOMERULAR FILTRATION RATE 10.7 (>60); MAGNESIUM LEVEL 1.7 MG/DL (1.8-2.4); PHOSPHORUS LEVEL 7.3 MG/DL (2.5-4.9)
[2022-09-29] MEDS: IPRATROPIUM 0.5MG/ALBUTEROL 2.5MG INH SOL UD 3ML (DUONEB) NEB SCH ×4 (07:27→19:08)
[2022-09-29] MEDS: CALCITRIOL 0.25 MCG CAP (S0169) PO SCH (08:33)
[2022-09-29] MEDS: ASPIRIN 81MG ENTERIC TABLET PO SCH (08:34)
[2022-09-29] MEDS: FOLIC ACID 1MG TAB PO SCH (08:35)
[2022-09-29] MEDS: CARVedilol 12.5 MG TAB PO SCH ×2 (08:36→21:00)
[2022-09-29] MEDS: cloNIDine 0.1MG TABLET PO SCH (08:38)
[2022-09-29] MEDS: HEPARIN SOD (PORCINE) 5000UNITS/ML 1ML VIAL/SYRINGE SQ SCH ×3 (08:38→21:00)
[2022-09-29] MEDS: CALCIUM ACETATE 667MG GELCAP PO SCH ×3 (08:40→17:17)
[2022-09-29] MEDS: ISOSORBIDE MON. (IMDUR) 60MG XR TAB PO SCH (08:41)
[2022-09-29] MEDS ORDERED: ACETAMINOPHEN TAB 650MG DOSE (2X325MG) PO PRN (09:50)
[2022-09-29] MEDS: MAGNESIUM OXIDE 400MG TAB (MAG-OX) PO SCH ×2 (10:01→22:02)
[2022-09-29 20:37] VITALS: BP 116/58
[2022-09-29] MEDS: ATORVASTATIN 20 MG TAB PO SCH (22:04)
[2022-09-30 06:00] VITALS: BP 137/94
[2022-09-30] MEDS ORDERED: HEPARIN 1,000UNITS/ML 10ML VIAL (FOR RADIOLOGY & DIALYSIS ONLY) IV PRN (06:00)
[2022-09-30] MEDS ORDERED: SODIUM CHLORIDE 0.9% 1000ML IV PRN (06:00)
[2022-09-30 06:03] LABS: BASO # 0.1 10^3/uL (0.0-0.2); BASO % 0.6 % (0.0-1.0); EOS # 0.3 10^3/uL (0.0-0.5); EOS % 3.1 % (0.0-3.0); HEMATOCRIT 27.5 % (42.0-52.0); HEMOGLOBIN 8.4 g/dl (13.5-17.5); LYMPH # 1.3 10^3/uL (1.5-5.0); LYMPH % 12.9 % (24.0-44.0); MEAN CORPUSCULAR HEMOGLOBIN 27.8 pg (27.0-33.0); MEAN CORPUSCULAR HGB CONC 30.5 g/dl (32.0-36.5); MEAN CORPUSCULAR VOLUME 91.1 fl (80.0-96.0); MONO % 9.6 % (2.0-8.0); NEUTROPHILS # 7.4 10^3/uL (1.5-8.5); NEUTROPHILS % 73.1 % (36.0-66.0); PLATELET COUNT, AUTOMATED 173 10^3/uL (150-450); RED BLOOD COUNT 3.02 10^6/uL (4.30-6.10); WHITE BLOOD COUNT 10.2 10^3/uL (4.0-10.0)
[2022-09-30] MEDS: HEPARIN SOD (PORCINE) 5000UNITS/ML 1ML VIAL/SYRINGE SQ SCH ×3 (06:09→20:48)
[2022-09-30] MEDS: ISOSORBIDE MON. (IMDUR) 60MG XR TAB PO SCH (06:23)
[2022-09-30] MEDS: CARVedilol 12.5 MG TAB PO SCH ×2 (06:24→20:47)
[2022-09-30] MEDS: ASPIRIN 81MG ENTERIC TABLET PO SCH (06:25)
[2022-09-30] MEDS: FOLIC ACID 1MG TAB PO SCH (06:26)
[2022-09-30] MEDS: CALCITRIOL 0.25 MCG CAP (S0169) PO SCH (06:26)
[2022-09-30] MEDS: CALCIUM ACETATE 667MG GELCAP PO SCH ×3 (06:27→18:30)
[2022-09-30] MEDS: MAGNESIUM OXIDE 400MG TAB (MAG-OX) PO SCH ×2 (06:30→20:48)
[2022-09-30 06:43] LABS: ALBUMIN 3.3 G/DL (3.2-5.2); CALCIUM LEVEL 5.9 MG/DL (8.5-10.1); CREATININE FOR GFR 7.18 MG/DL (0.70-1.30); GLOMERULAR FILTRATION RATE 8.8 (>60); MAGNESIUM LEVEL 1.9 MG/DL (1.8-2.4); PHOSPHORUS LEVEL 7.5 MG/DL (2.5-4.9); POTASSIUM SERUM 4.9 MMOL/L (3.5-5.1)
[2022-09-30] MEDS: IPRATROPIUM 0.5MG/ALBUTEROL 2.5MG INH SOL UD 3ML (DUONEB) NEB SCH ×4 (08:00→18:47)
[2022-09-30] MEDS ORDERED: DARBEPOETIN 100MCG/0.5ML *DIALYSIS* SYRINGE IV SCH (10:45)
[2022-09-30] MEDS: ATORVASTATIN 20 MG TAB PO SCH (20:48)
[2022-10-01] VITALS (8 sets, daily range): BP systolic 125–147; BP diastolic 77–97
[2022-10-01 07:13] LABS: BASO # 0.1 10^3/uL (0.0-0.2); BASO % 0.7 % (0.0-1.0); EOS # 0.3 10^3/uL (0.0-0.5); EOS % 3.3 % (0.0-3.0); HEMATOCRIT 28.3 % (42.0-52.0); HEMOGLOBIN 8.7 g/dl (13.5-17.5); LYMPH # 1.2 10^3/uL (1.5-5.0); LYMPH % 13.6 % (24.0-44.0); MEAN CORPUSCULAR HEMOGLOBIN 27.9 pg (27.0-33.0); MEAN CORPUSCULAR HGB CONC 30.7 g/dl (32.0-36.5); MEAN CORPUSCULAR VOLUME 90.7 fl (80.0-96.0); MONO # 0.9 10^3/uL (0.0-0.8); NEUTROPHILS # 6.3 10^3/uL (1.5-8.5); NEUTROPHILS % 71.7 % (36.0-66.0); PLATELET COUNT, AUTOMATED 136 10^3/uL (150-450); RED BLOOD COUNT 3.12 10^6/uL (4.30-6.10); WHITE BLOOD COUNT 8.7 10^3/uL (4.0-10.0)
[2022-10-01 07:29] LABS: ALBUMIN 3.3 G/DL (3.2-5.2); CALCIUM LEVEL 6.4 MG/DL (8.5-10.1); CREATININE FOR GFR 5.79 MG/DL (0.70-1.30); GLOMERULAR FILTRATION RATE 11.3 (>60); MAGNESIUM LEVEL 1.8 MG/DL (1.8-2.4); PHOSPHORUS LEVEL 6.2 MG/DL (2.5-4.9); POTASSIUM SERUM 4.7 MMOL/L (3.5-5.1)
[2022-10-01] MEDS: IPRATROPIUM 0.5MG/ALBUTEROL 2.5MG INH SOL UD 3ML (DUONEB) NEB SCH ×3 (07:29→15:54)
[2022-10-01] MEDS: ASPIRIN 81MG ENTERIC TABLET PO SCH (09:00)
[2022-10-01] MEDS: HEPARIN SOD (PORCINE) 5000UNITS/ML 1ML VIAL/SYRINGE SQ SCH ×3 (09:00→20:04)
[2022-10-01] MEDS: MAGNESIUM OXIDE 400MG TAB (MAG-OX) PO SCH ×2 (09:39→20:02)
[2022-10-01] MEDS: CALCITRIOL 0.25 MCG CAP (S0169) PO SCH (09:39)
[2022-10-01] MEDS: FOLIC ACID 1MG TAB PO SCH (09:39)
[2022-10-01] MEDS: ISOSORBIDE MON. (IMDUR) 60MG XR TAB PO SCH (09:40)
[2022-10-01] MEDS: CARVedilol 12.5 MG TAB PO SCH ×2 (09:41→20:04)
[2022-10-01] MEDS: CALCIUM ACETATE 667MG GELCAP PO SCH ×3 (09:44→20:03)
[2022-10-01] MEDS ORDERED: fentaNYL 100 MCG/2 ML INJECTION IV PRN ×2 (16:45→19:05)
[2022-10-01] MEDS ORDERED: ROPIvacaine 0.5% 30ML VIAL PN ONE (16:45)
[2022-10-01] MEDS ORDERED: MIDAZOLAM INJ 2MG/2ML VIAL IV PRN (16:45)
[2022-10-01] MEDS ORDERED: MEPIVACAINE HCL 2% 20 ML VIAL PN ONE (16:45)
[2022-10-01] MEDS ORDERED: ceFAZolin SOD 1 GM in D5W MINI-BAG PLUS 50 ML IV ONE (16:50)
[2022-10-01] MEDS ORDERED: ceFAZolin SOD 2 GM in IV 1 EA IV ONE (16:50)
[2022-10-01] MEDS ORDERED: BUPIVACAINE/EPIN 0.25% 30ML VIAL As Ordered ONE (17:08)
[2022-10-01] MEDS ORDERED: HEPARIN SOD (PORCINE) 5000UNITS/ML 1ML VIAL/SYRINGE As Ordered ONE (17:09)
[2022-10-01] MEDS ORDERED: PAPAVERINE HCL 60MG 2ML VIAL (30MG/ML) As Ordered ONE (17:09)
[2022-10-01] MEDS ORDERED: LIDOCAINE 1% SDV 30ML VIAL As Ordered ONE (17:09)
[2022-10-01] MEDS ORDERED: BUPIVACAINE/EPIN 0.5% 30ML VIAL As Ordered ONE (17:10)
[2022-10-01] MEDS ORDERED: MIDAZOLAM INJ 2MG/2ML VIAL As Ordered ONE ×2 (17:12→18:08)
[2022-10-01] MEDS ORDERED: propofoL 500 MG/50 ML VIAL As Ordered ONE (17:12)
[2022-10-01] MEDS ORDERED: LIDOCAINE 2% 100MG/5ML SDV (FOR ANES.) As Ordered ONE (17:12)
[2022-10-01] MEDS ORDERED: fentaNYL 100 MCG/2 ML INJECTION As Ordered ONE (17:13)
[2022-10-01] MEDS ORDERED: ceFAZolin 1GM VIAL As Ordered ONE (17:23)
[2022-10-01] MEDS ORDERED: ALBUTEROL SULFATE 2.5MG/0.5ML INH NEB SOLN NEB PRN (17:55)
[2022-10-01] MEDS ORDERED: oxyCODONE 5MG TAB PO PRN (19:05)
[2022-10-01] MEDS ORDERED: METOCLOPRAMIDE INJ 10MG/2ML VIAL IV PRN (19:05)
[2022-10-01] MEDS ORDERED: ONDANSETRON 4MG 2ML VIAL IV PRN (19:05)
[2022-10-01] MEDS ORDERED: HYDROMORPHONE HCL 0.5 MG/ 0.5 ML SYRINGE IV PRN (19:05)
[2022-10-01] MEDS: ATORVASTATIN 20 MG TAB PO SCH (20:02)
[2022-10-01] MEDS ORDERED: MORPHINE 2 MG/ML 1ML VIAL IV PRN (22:00)
[2022-10-01] MEDS: oxyCODONE 5MG TAB PO PRN (22:19)
[2022-10-02 00:45] VITALS: BP 148/93
[2022-10-02 04:45] VITALS: BP 141/93
[2022-10-02] MEDS: ASPIRIN 81MG ENTERIC TABLET PO SCH (05:35)
[2022-10-02] MEDS: CARVedilol 12.5 MG TAB PO SCH ×2 (05:35→20:26)
[2022-10-02] MEDS: oxyCODONE 5MG TAB PO PRN ×2 (05:37→18:34)
[2022-10-02] MEDS: CALCITRIOL 0.25 MCG CAP (S0169) PO SCH (05:38)
[2022-10-02] MEDS: FOLIC ACID 1MG TAB PO SCH (05:38)
[2022-10-02] MEDS ORDERED: SODIUM CHLORIDE 0.9% 1000ML IV PRN (06:00)
[2022-10-02] MEDS ORDERED: HEPARIN 1,000UNITS/ML 10ML VIAL (FOR RADIOLOGY & DIALYSIS ONLY) IV PRN (06:00)
[2022-10-02] MEDS: HEPARIN SOD (PORCINE) 5000UNITS/ML 1ML VIAL/SYRINGE SQ SCH ×3 (06:08→20:20)
[2022-10-02 07:04] LABS: BASO # 0.1 10^3/uL (0.0-0.2); BASO % 0.6 % (0.0-1.0); EOS # 0.2 10^3/uL (0.0-0.5); EOS % 2.2 % (0.0-3.0); HEMOGLOBIN 8.5 g/dl (13.5-17.5); LYMPH # 1.2 10^3/uL (1.5-5.0); LYMPH % 12.9 % (24.0-44.0); MEAN CORPUSCULAR HGB CONC 30.4 g/dl (32.0-36.5); MEAN CORPUSCULAR VOLUME 92.1 fl (80.0-96.0); MONO # 0.9 10^3/uL (0.0-0.8); MONO % 9.6 % (2.0-8.0); NEUTROPHILS # 6.9 10^3/uL (1.5-8.5); NEUTROPHILS % 74.1 % (36.0-66.0); PLATELET COUNT, AUTOMATED 168 10^3/uL (150-450); RED BLOOD COUNT 3.04 10^6/uL (4.30-6.10); WHITE BLOOD COUNT 9.3 10^3/uL (4.0-10.0)
[2022-10-02 07:23] LABS: ALBUMIN 3.3 G/DL (3.2-5.2); CALCIUM LEVEL 5.9 MG/DL (8.5-10.1); CREATININE FOR GFR 6.85 MG/DL (0.70-1.30); GLOMERULAR FILTRATION RATE 9.3 (>60); PHOSPHORUS LEVEL 6.3 MG/DL (2.5-4.9); POTASSIUM SERUM 5.2 MMOL/L (3.5-5.1)
[2022-10-02] MEDS ORDERED: CALCIUM GLUCONATE 1,000 MG in D5W MINI-BAG PLUS 100 ML IV ONE (09:00)
[2022-10-02] MEDS: CALCIUM ACETATE 667MG GELCAP PO SCH ×3 (09:32→18:33)
[2022-10-02 10:00] VITALS: BP 131/77
[2022-10-02 14:00] VITALS: BP 158/86
[2022-10-02 20:00] VITALS: BP 156/86
[2022-10-02] MEDS: ATORVASTATIN 20 MG TAB PO SCH (20:21)
[2022-10-02 20:26] VITALS: BP 159/82
[2022-10-03] MEDS: oxyCODONE 5MG TAB PO PRN ×3 (04:54→23:47)
[2022-10-03 06:00] VITALS: BP 161/91
[2022-10-03 06:37] LABS: HEMATOCRIT 27.5 % (42.0-52.0); HEMOGLOBIN 8.4 g/dl (13.5-17.5); MEAN CORPUSCULAR HEMOGLOBIN 27.8 pg (27.0-33.0); MEAN CORPUSCULAR HGB CONC 30.5 g/dl (32.0-36.5); MEAN CORPUSCULAR VOLUME 91.1 fl (80.0-96.0); PLATELET COUNT, AUTOMATED 159 10^3/uL (150-450); RED BLOOD COUNT 3.02 10^6/uL (4.30-6.10); WHITE BLOOD COUNT 8.3 10^3/uL (4.0-10.0)
[2022-10-03 07:01] LABS: ALBUMIN 3.3 G/DL (3.2-5.2); ALKALINE PHOSPHATASE 52 U/L (46-116); ALT/SGPT < 9 U/L (7.0-40); AST/SGOT 19 U/L (<34); BILIRUBIN,TOTAL 0.5 MG/DL (0.3-1.2); BLOOD UREA NITROGEN 40 MG/DL (9-23); CALCIUM LEVEL 6.5 MG/DL (8.5-10.1); CARBON DIOXIDE LEVEL 28 MMOL/L (20-31); CHLORIDE LEVEL 96 MMOL/L (98-107); CPK CREATINE PHOSPHOKINASE 1138 U/L (46-171); CREATININE FOR GFR 5.32 MG/DL (0.70-1.30); GLOMERULAR FILTRATION RATE 12.5 (>60); GLUCOSE, FASTING 91 MG/DL (60-100); PHOSPHORUS LEVEL 5.4 MG/DL (2.5-4.9); POTASSIUM SERUM 4.6 MMOL/L (3.5-5.1); SODIUM LEVEL 132 MMOL/L (136-145); TOTAL PROTEIN 7.8 G/DL (5.7-8.2)
[2022-10-03] MEDS: ASPIRIN 81MG ENTERIC TABLET PO SCH (08:14)
[2022-10-03] MEDS: FOLIC ACID 1MG TAB PO SCH (08:15)
[2022-10-03] MEDS: CALCIUM ACETATE 667MG GELCAP PO SCH ×3 (08:15→18:16)
[2022-10-03] MEDS: CARVedilol 12.5 MG TAB PO SCH ×2 (08:15→20:41)
[2022-10-03] MEDS: CALCITRIOL 0.25 MCG CAP (S0169) PO SCH (08:15)
[2022-10-03] MEDS: HEPARIN SOD (PORCINE) 5000UNITS/ML 1ML VIAL/SYRINGE SQ SCH ×3 (08:15→20:41)
[2022-10-03 14:00] VITALS: BP 139/80
[2022-10-03 20:00] VITALS: BP 135/83
[2022-10-03] MEDS: ATORVASTATIN 20 MG TAB PO SCH (20:41)
[2022-10-04 06:00] VITALS: BP 144/95
[2022-10-04] MEDS ORDERED: HEPARIN 1,000UNITS/ML 10ML VIAL (FOR RADIOLOGY & DIALYSIS ONLY) IV PRN (06:00)
[2022-10-04] MEDS ORDERED: HEPARIN 1,000UNITS/ML 10ML VIAL (FOR RADIOLOGY & DIALYSIS ONLY) XX SCH (06:00)
[2022-10-04] MEDS ORDERED: SODIUM CHLORIDE 0.9% 1000ML IV PRN (06:00)
[2022-10-04] MEDS: HEPARIN SOD (PORCINE) 5000UNITS/ML 1ML VIAL/SYRINGE SQ SCH (06:15)
[2022-10-04 06:20] VITALS: BP 147/94
[2022-10-04] MEDS: CARVedilol 12.5 MG TAB PO SCH (06:20)
[2022-10-04] MEDS: FOLIC ACID 1MG TAB PO SCH (06:22)
[2022-10-04] MEDS: ASPIRIN 81MG ENTERIC TABLET PO SCH (06:22)
[2022-10-04] MEDS: CALCIUM ACETATE 667MG GELCAP PO SCH ×2 (06:37→13:27)
[2022-10-04 06:58] LABS: HEMATOCRIT 29.4 % (42.0-52.0); MEAN CORPUSCULAR HEMOGLOBIN 28.2 pg (27.0-33.0); MEAN CORPUSCULAR HGB CONC 30.6 g/dl (32.0-36.5); MEAN CORPUSCULAR VOLUME 92.2 fl (80.0-96.0); PLATELET COUNT, AUTOMATED 192 10^3/uL (150-450); RED BLOOD COUNT 3.19 10^6/uL (4.30-6.10); WHITE BLOOD COUNT 10.2 10^3/uL (4.0-10.0)
[2022-10-04] MEDS ORDERED: CALCITRIOL 0.25 MCG CAP (S0169) PO SCH (07:00)
[2022-10-04 07:20] LABS: ALBUMIN 3.5 G/DL (3.2-5.2); ALKALINE PHOSPHATASE 56 U/L (46-116); ALT/SGPT < 9 U/L (7.0-40); AST/SGOT 14 U/L (<34); BILIRUBIN,TOTAL 0.7 MG/DL (0.3-1.2); BLOOD UREA NITROGEN 57 MG/DL (9-23); CALCIUM LEVEL 6.5 MG/DL (8.5-10.1); CARBON DIOXIDE LEVEL 27 MMOL/L (20-31); CHLORIDE LEVEL 95 MMOL/L (98-107); GLOMERULAR FILTRATION RATE 9.7 (>60); GLUCOSE, FASTING 78 MG/DL (60-100); MAGNESIUM LEVEL 2.1 MG/DL (1.8-2.4); POTASSIUM SERUM 4.7 MMOL/L (3.5-5.1); SODIUM LEVEL 133 MMOL/L (136-145); TOTAL PROTEIN 8.1 G/DL (5.7-8.2)
[2022-10-04] MEDS: oxyCODONE 5MG TAB PO PRN (07:44)
[2022-10-04] MEDS ORDERED: ACET1TAB55 PO (08:13)
[2022-10-04] MEDS ORDERED: CARV12.5 PO (08:13)
[2022-10-04] MEDS ORDERED: ROCA0.5C PO (08:13)
[2022-10-04] MEDS ORDERED: DARBEPOETIN 100MCG/0.5ML *DIALYSIS* SYRINGE IV SCH (09:00)
== END 2022-10-04 14:33 | disposition home or self-care (01) | DRG 444 ==
LOC: M ED 11:00 → M ED INP 16:00 → ENRESERV 16:41 → M PCU 17:19 → M MSPAV 09-28 19:54
PROVIDERS: ADMIT Student in an Organized Health Care Education/Training Program; ATTEND Internal Medicine
PROC: B513ZZZ Fluoroscopy of Right Jugular Veins (ICD-10-PCS; 2022-09-27)
PROC: 0JH63XZ Insertion of Tunneled Vascular Access Device into Chest Subcutaneous Tissue and Fascia, Percutaneous Approach (ICD-10-PCS; principal; 2022-09-27 14:00)
PROC: 5A1D70Z Performance of Urinary Filtration, Intermittent, Less than 6 Hours Per Day (ICD-10-PCS; 2022-09-28)
PROC: B246ZZZ Ultrasonography of Right and Left Heart (ICD-10-PCS; 2022-09-28)
PROC: 031C0ZF Bypass Left Radial Artery to Lower Arm Vein, Open Approach (ICD-10-PCS; 2022-10-01)
PROC: 02HV33Z Insertion of Infusion Device into Superior Vena Cava, Percutaneous Approach (ICD-10-PCS; 2022-10-01)
DX: N18.6 End stage renal disease (principal); I13.2 Hypertensive heart and chronic kidney disease with heart failure and with stage 5 chronic kidney disease, or end stage renal disease; E87.20 Acidosis, unspecified; M62.82 Rhabdomyolysis; N25.81 Secondary hyperparathyroidism of renal origin; E87.1 Hypo-osmolality and hyponatremia; I50.32 Chronic diastolic (congestive) heart failure; E66.01 Morbid (severe) obesity due to excess calories; E83.51 Hypocalcemia; E83.42 Hypomagnesemia; Z68.43 Body mass index [BMI] 50.0-59.9, adult; E87.5 Hyperkalemia; G47.33 Obstructive sleep apnea (adult) (pediatric); F17.290 Nicotine dependence, other tobacco product, uncomplicated; D63.1 Anemia in chronic kidney disease; E78.5 Hyperlipidemia, unspecified; Z79.82 Long term (current) use of aspirin; Z79.899 Other long term (current) drug therapy; Z88.3 Allergy status to other anti-infective agents; Z20.822 Contact with and (suspected) exposure to COVID-19; I87.2 Venous insufficiency (chronic) (peripheral); N17.9 Acute kidney failure, unspecified

== ENCOUNTER 2023-02-10 11:29 | Emergency (ER) | payer OTHER ==
[~2023-02-10 11:29] MED LIST changes: +ACET1TAB55 PO; +CARV12.5 PO; +FERR1TAB8 PO; -NIFE90TA20 PO; +NIFE90TA46 PO; +ROCA0.5C PO; +TORS100T PO
[2023-02-10] MEDS ORDERED: PERCOCET 5MG/325MG TAB PO ONE (17:55)
[2023-02-10] MEDS ORDERED: PERC5TAB12 PO (19:09)
[2023-02-10 19:29] VITALS: BP 167/82; O2SAT 95
[2023-02-10 19:30] VITALS: TEMP 98.6
== END 2023-02-10 21:08 | disposition home or self-care (01) ==
LOC: EDBD 11:29 → M ED 11:29
DX: S09.90XA Unspecified injury of head, initial encounter (principal); V00.811A Fall from moving wheelchair (powered), initial encounter; Y92.126 Garden or yard of nursing home as the place of occurrence of the external cause; Y93.89 Activity, other specified; Y99.8 Other external cause status; M54.9 Dorsalgia, unspecified; Z79.899 Other long term (current) drug therapy; Z79.82 Long term (current) use of aspirin

== ENCOUNTER → 2023-02-18 | Outpatient (CLI) | payer OTHER ==
[~2023-02-18] VITALS: Ht 170.2 cm; Wt 150.3 kg
[~2023-02-18] MED LIST changes: +FAMOTIDINE 20MG/2ML VIAL IV ONE; +FAMOTIDINE/NS 20MG/50ML BAG IV ONE; +HEPARIN 1,000UNITS/ML 10ML VIAL (FOR RADIOLOGY & DIALYSIS ONLY) As Ordered ONE; +ISOVUE-300 61% 100ML VIAL As Ordered ONE; +LIDOCAINE 1% MDV 20ML VIAL As Ordered ONE; +MIDAZOLAM INJ 2MG/2ML VIAL As Ordered ONE; +PERC5TAB12 PO; +ceFAZolin 2 GM/D5W 50 ML IV BAG As Ordered ONE; +ceFAZolin SOD 1 GM in D5W MINI-BAG PLUS 50 ML IV ONE; +ceFAZolin SOD 2 GM in IV 1 EA IV ONE; +diphenhydrAMINE 50MG/ML VIAL As Ordered ONE; +diphenhydrAMINE 50MG/ML VIAL IV ONE; +fentaNYL 100 MCG/2 ML INJECTION As Ordered ONE; +methylPREDNISolone 125MG 2ML VIAL As Ordered ONE; +methylPREDNISolone 125MG 2ML VIAL IV ONE
[2023-02-18 07:20] VITALS: TEMP 96.6
[2023-02-18 08:11] LABS: HEMATOCRIT 36.8 % (42.0-52.0); HEMOGLOBIN 11.2 g/dl (13.5-17.5); MEAN CORPUSCULAR HEMOGLOBIN 30.9 pg (27.0-33.0); MEAN CORPUSCULAR HGB CONC 30.4 g/dl (32.0-36.5); MEAN CORPUSCULAR VOLUME 101.7 fl (80.0-96.0); PLATELET COUNT, AUTOMATED 132 10^3/uL (150-450); RED BLOOD COUNT 3.62 10^6/uL (4.30-6.10); WHITE BLOOD COUNT 5.9 10^3/uL (4.0-10.0)
[2023-02-18 08:39] LABS: CALCIUM LEVEL 7.9 MG/DL (8.5-10.1); CREATININE FOR GFR 12.4 MG/DL (0.70-1.30); GLOMERULAR FILTRATION RATE 4.7 (>60); POTASSIUM SERUM 5.2 MMOL/L (3.5-5.1)
[2023-02-18 12:45] VITALS: BP 150/83; O2SAT 99
== END ==
LOC: M IRPRO 07:06
PROVIDERS: ATTEND Surgery Vascular Surgery
DX: N18.6 End stage renal disease (principal)
CPT/HCPCS: 36902; 80048; 85027; 86850; 86900; 86901; 99152; 99153; J0690; J1200; J2250; J2930; J3010; Q9967; S0028

== ENCOUNTER 2023-02-23 22:03 | Inpatient (IN) | payer OTHER ==
[~2023-02-23] VITALS: Ht 170.2 cm; Wt 156.3 kg
[~2023-02-23 22:03] MED LIST changes: -FAMOTIDINE 20MG/2ML VIAL IV ONE; -FAMOTIDINE/NS 20MG/50ML BAG IV ONE; -HEPARIN 1,000UNITS/ML 10ML VIAL (FOR RADIOLOGY & DIALYSIS ONLY) As Ordered ONE; -ISOVUE-300 61% 100ML VIAL As Ordered ONE; -LIDOCAINE 1% MDV 20ML VIAL As Ordered ONE; -MIDAZOLAM INJ 2MG/2ML VIAL As Ordered ONE; -ceFAZolin 2 GM/D5W 50 ML IV BAG As Ordered ONE; -ceFAZolin SOD 1 GM in D5W MINI-BAG PLUS 50 ML IV ONE; -ceFAZolin SOD 2 GM in IV 1 EA IV ONE; -diphenhydrAMINE 50MG/ML VIAL As Ordered ONE; -diphenhydrAMINE 50MG/ML VIAL IV ONE; -fentaNYL 100 MCG/2 ML INJECTION As Ordered ONE; -methylPREDNISolone 125MG 2ML VIAL As Ordered ONE; -methylPREDNISolone 125MG 2ML VIAL IV ONE
[2023-02-23 22:34] LABS: BASO % 0.3 % (0.0-1.0); HEMATOCRIT 33.5 % (42.0-52.0); HEMOGLOBIN 10.7 g/dl (13.5-17.5); LYMPH # 0.5 10^3/uL (1.5-5.0); LYMPH % 7.8 % (24.0-44.0); MEAN CORPUSCULAR HEMOGLOBIN 31.4 pg (27.0-33.0); MEAN CORPUSCULAR HGB CONC 31.9 g/dl (32.0-36.5); MEAN CORPUSCULAR VOLUME 98.2 fl (80.0-96.0); MONO # 0.8 10^3/uL (0.0-0.8); MONO % 12.3 % (2.0-8.0); NEUTROPHILS # 5.1 10^3/uL (1.5-8.5); NEUTROPHILS % 78.4 % (36.0-66.0); PLATELET COUNT, AUTOMATED 132 10^3/uL (150-450); RED BLOOD COUNT 3.41 10^6/uL (4.30-6.10); WHITE BLOOD COUNT 6.5 10^3/uL (4.0-10.0)
[2023-02-23 22:36] LABS: VENOUS BASE EXCESS -7.1 (-2.0-2.0); VENOUS HCO3 17.6 MMOL/L (23.0-27.0); VENOUS O2 SATURATION 95.2 % (60.0-80.0); VENOUS PARTIAL PRESSURE CO2 32.6 mmHg (38.0-50.0); VENOUS PARTIAL PRESSURE O2 81.4 mmHg (30.0-50.0); VENOUS PH 7.349 UNITS (7.330-7.430); VENOUS STANDARD HCO3 18.7 MMOL/L; VENOUS TOTAL CO2 18.6 MMOL/L (24.0-28.0)
[2023-02-23] MEDS ORDERED: ACETAMINOPHEN TAB 650MG DOSE (2X325MG) PO ONE (22:55)
[2023-02-23 23:03] LABS: CPK CREATINE PHOSPHOKINASE 297 U/L (46-171)
[2023-02-23 23:08] LABS: BLOOD UREA NITROGEN 91 MG/DL (9-23); CALCIUM LEVEL 6.3 MG/DL (8.5-10.1); CARBON DIOXIDE LEVEL 19 MMOL/L (20-31); CHLORIDE LEVEL 98 MMOL/L (98-107); CK-MB VALUE MASS < 1.0 NG/ML (<3.6); GLOMERULAR FILTRATION RATE 3.5 (>60); GLUCOSE, FASTING 93 MG/DL (60-100); MB/CK RELATIVE INDEX 0.33 (< OR =4); POTASSIUM SERUM 7.3 MMOL/L (3.5-5.1); SODIUM LEVEL 131 MMOL/L (136-145); THYROID STIMULATING HORMONE 1.626 uIU/ML (0.55-4.78)
[2023-02-23] MEDS ORDERED: HumuLIN R (REGULAR) INSULIN (NovoLIN R) **100U/ML** PER UNIT IV ONE (23:10)
[2023-02-23] MEDS ORDERED: PATIROMER SORBITEX CALCIUM 8.4 GM POWDER PACKET (VELTASSA) PO ONE (23:10)
[2023-02-23] MEDS ORDERED: CALCIUM GLUCONATE 1,000MG/10ML VIAL (100MG/ML) IV ONE (23:10)
[2023-02-23] MEDS ORDERED: SODIUM BICARBONATE 8.4% INJ 50ML SYRINGE IV ONE (23:10)
[2023-02-23] MEDS ORDERED: DEXTROSE 50% 50ML SYRINGE IV ONE (23:10)
[2023-02-23] MEDS ORDERED: FUROSEMIDE 100MG/10ML VIAL IV ONE (23:25)
[2023-02-24] VITALS (22 sets, daily range): BP systolic 101–139; BP diastolic 50–85; TEMP 100.8–103.8; O2SAT 90–98
[2023-02-24 00:37] LABS: CK-MB VALUE MASS 1.3 NG/ML (<3.6)
[2023-02-24 00:38] LABS: MB/CK RELATIVE INDEX 0.44 (< OR =4)
[2023-02-24 00:53] LABS: CALCIUM LEVEL 6.3 MG/DL (8.5-10.1); CREATININE FOR GFR 16.07 MG/DL (0.70-1.30); GLOMERULAR FILTRATION RATE 3.5 (>60); POTASSIUM SERUM 6.4 MMOL/L (3.5-5.1)
[2023-02-24] MEDS: IPRATROPIUM 0.5MG/ALBUTEROL 2.5MG INH SOL UD 3ML (DUONEB) NEB ONE ×2 (01:16→01:38)
[2023-02-24] MEDS ORDERED: ROCA0.5C PO (01:37)
[2023-02-24] MEDS ORDERED: LOSA100T46 PO (01:37)
[2023-02-24] MEDS ORDERED: HOME MED LIST COMPLETE! XX SCH (01:40)
[2023-02-24] MEDS ORDERED: PIPERACILLIN/TAZOBACTAM SOD 3.375 GM in D5W MINI-BAG PLUS 50 ML IV SCH (03:00)
[2023-02-24] MEDS ORDERED: ONDANSETRON 4MG 2ML VIAL IV PRN (03:00)
[2023-02-24] MEDS ORDERED: ALBUTEROL SULFATE 2.5MG/0.5ML INH NEB SOLN NEB PRN (03:00)
[2023-02-24 03:37] LABS: PROCALCITONIN 5.66 ng/ml
[2023-02-24] MEDS: PIPERACILLIN/TAZOBACTAM SOD 2.25 GM in D5W MINI-BAG PLUS 50 ML IV SCH ×3 (04:22→21:55)
[2023-02-24] MEDS ORDERED: HEPARIN 1,000UNITS/ML 10ML VIAL (FOR RADIOLOGY & DIALYSIS ONLY) XX SCH (05:20)
[2023-02-24] MEDS ORDERED: SODIUM CHLORIDE 0.9% 1000ML IV PRN (05:20)
[2023-02-24] MEDS ORDERED: HEPARIN 1,000UNITS/ML 10ML VIAL (FOR RADIOLOGY & DIALYSIS ONLY) IV PRN (05:20)
[2023-02-24] MEDS: ACETAMINOPHEN TAB 650MG DOSE (2X325MG) PO PRN ×3 (05:48→21:29)
[2023-02-24] MEDS: HEPARIN SOD (PORCINE) 5000UNITS/ML 1ML VIAL/SYRINGE SC SCH ×3 (05:48→21:29)
[2023-02-24] MEDS: VANCOMYCIN HCL 1,000 MG, VIAL MATE ADAPTER 1 EACH in NS 250 ML IV SCH ×2 (06:01→07:32)
[2023-02-24] MEDS ORDERED: ACETAMINOPHEN 500 MG TAB PO ONE (07:15)
[2023-02-24] MEDS: CALCIUM ACETATE 667MG GELCAP PO SCH ×3 (08:32→18:03)
[2023-02-24] MEDS: ASPIRIN 81MG ENTERIC TABLET PO SCH (08:32)
[2023-02-24] MEDS: CALCITRIOL 0.25 MCG CAP (S0169) PO SCH (08:32)
[2023-02-24] MEDS: FOLIC ACID 1MG TAB PO SCH (08:32)
[2023-02-24] MEDS: PANTOPRAZOLE 40MG TAB (PROTONIX) PO SCH (08:32)
[2023-02-24] MEDS ORDERED: METOCLOPRAMIDE INJ 10MG/2ML VIAL IV ONE (09:00)
[2023-02-24] MEDS ORDERED: LOSARTAN 50MG TABLET PO SCH (09:00)
[2023-02-24] MEDS ORDERED: FIORICET TAB PO ONE (09:00)
[2023-02-24] MEDS ORDERED: MAG SULF 1GM/100ML (MAG RUN) 2 GM in IV 1 EA IV SCH (15:05)
[2023-02-24 15:25] LABS: IONIZED CALCIUM 3.8 MG/DL (4.5-5.3)
[2023-02-24 15:31] LABS: ABG BASE EXCESS -4.8 (-2.0-2.0); ABG HCO3 19.6 MMOL/L (22.0-26.0); ABG O2 SATURATION 97.5 % (95.0-99.0); ABG PARTIAL PRESSURE O2 102.1 mmHg (75.0-100.0); ABG STANDARD HCO3 20.5 MMOL/L. (22.0-26.0); ABG TOTAL CO2 20.6 MMOL/L (22.0-29.0); ABG pH (ARTERIAL) 7.378 UNITS (7.350-7.450)
[2023-02-24 15:54] LABS: CK-MB VALUE MASS 1.5 NG/ML (<3.6)
[2023-02-24 15:55] LABS: MB/CK RELATIVE INDEX 0.37 (< OR =4)
[2023-02-24 15:59] LABS: CALCIUM LEVEL 7.5 MG/DL (8.5-10.1); CREATININE FOR GFR 10.16 MG/DL (0.70-1.30); GLOMERULAR FILTRATION RATE 5.9 (>60); MAGNESIUM LEVEL 1.6 MG/DL (1.8-2.4); POTASSIUM SERUM 5.2 MMOL/L (3.5-5.1)
[2023-02-24] MEDS ORDERED: CALCIUM GLUCONATE 1,000 MG in D5W MINI-BAG PLUS 100 ML IV ONE (16:00)
[2023-02-24] MEDS ORDERED: VANCOMYCIN HCL 1,000 MG, VIAL MATE ADAPTER 1 EACH in D5W 250 ML IV SCH (16:00)
[2023-02-24 16:02] LABS: HEMATOCRIT 35.5 % (42.0-52.0); HEMOGLOBIN 10.9 g/dl (13.5-17.5); MEAN CORPUSCULAR HGB CONC 30.7 g/dl (32.0-36.5); MEAN CORPUSCULAR VOLUME 100.9 fl (80.0-96.0); PLATELET COUNT, AUTOMATED 104 10^3/uL (150-450); RED BLOOD COUNT 3.52 10^6/uL (4.30-6.10); WHITE BLOOD COUNT 7.6 10^3/uL (4.0-10.0)
[2023-02-24] MEDS: MAG SULF 1GM/100ML (MAG RUN) 1 GM in IV 1 EA IV SCH ×2 (16:31→18:03)
[2023-02-24 17:04] LABS: ANISOCYTOSIS 2+; ATYPICAL LYMPH 2 % (0-5); LYMPHOCYTES 1 % (16-44); METAMYELOCYTES 1 % (0-0); MONOCYTES 10 % (0-5); NEUTROPHILS 84 % (28-66)
[2023-02-24 17:05] LABS: HYPOCHROMASIA 1+
[2023-02-24 17:07] LABS: PLATELET CLUMPS SMALL AMT; PLATELET ESTIMATE DECREASED (NORMAL)
[2023-02-24] MEDS: DOXYCYCLINE HYCLATE 100 MG in D5W MINI-BAG PLUS 100 ML IV SCH (20:33)
[2023-02-24] MEDS: ATORVASTATIN 20 MG TAB PO SCH (21:28)
[2023-02-25] VITALS (23 sets, daily range): BP systolic 111–177; BP diastolic 58–92; TEMP 98.4–103.1; O2SAT 81–100
[2023-02-25] MEDS: ACETAMINOPHEN TAB 650MG DOSE (2X325MG) PO PRN ×3 (05:04→20:24)
[2023-02-25] MEDS: PIPERACILLIN/TAZOBACTAM SOD 2.25 GM in D5W MINI-BAG PLUS 50 ML IV SCH ×3 (05:04→20:24)
[2023-02-25] MEDS: HEPARIN SOD (PORCINE) 5000UNITS/ML 1ML VIAL/SYRINGE SC SCH ×3 (05:47→20:24)
[2023-02-25] MEDS: DOXYCYCLINE HYCLATE 100 MG in D5W MINI-BAG PLUS 100 ML IV SCH (06:21)
[2023-02-25 06:59] LABS: HEMATOCRIT 31.9 % (42.0-52.0); HEMOGLOBIN 9.8 g/dl (13.5-17.5); MEAN CORPUSCULAR HEMOGLOBIN 31.1 pg (27.0-33.0); MEAN CORPUSCULAR HGB CONC 30.7 g/dl (32.0-36.5); MEAN CORPUSCULAR VOLUME 101.3 fl (80.0-96.0); PLATELET COUNT, AUTOMATED 110 10^3/uL (150-450); RED BLOOD COUNT 3.15 10^6/uL (4.30-6.10)
[2023-02-25 07:31] LABS: ATYPICAL LYMPH 3 % (0-5); EOSINOPHILS 1 % (0-3); LYMPHOCYTES 6 % (16-44); MONOCYTES 13 % (0-5); NEUTROPHILS 77 % (28-66)
[2023-02-25 07:32] LABS: MICROCYTOSIS 1+; PLATELET ESTIMATE DECREASED (NORMAL); POLYCHROMASIA 1+
[2023-02-25 07:33] LABS: CALCIUM LEVEL 7.2 MG/DL (8.5-10.1); CREATININE FOR GFR 13.38 MG/DL (0.70-1.30); GLOMERULAR FILTRATION RATE 4.3 (>60); POTASSIUM SERUM 5.6 MMOL/L (3.5-5.1)
[2023-02-25] MEDS ORDERED: HEPARIN 1,000UNITS/ML 10ML VIAL (FOR RADIOLOGY & DIALYSIS ONLY) XX SCH (08:00)
[2023-02-25] MEDS ORDERED: HEPARIN 1,000UNITS/ML 10ML VIAL (FOR RADIOLOGY & DIALYSIS ONLY) IV PRN (08:00)
[2023-02-25] MEDS ORDERED: LIDOCAINE 1% SDV 5ML VIAL SC PRN (08:00)
[2023-02-25] MEDS ORDERED: SODIUM CHLORIDE 0.9% 1000ML IV PRN (08:00)
[2023-02-25] MEDS: FOLIC ACID 1MG TAB PO SCH (08:27)
[2023-02-25] MEDS: CALCIUM ACETATE 667MG GELCAP PO SCH ×4 (08:27→19:16)
[2023-02-25] MEDS: ASPIRIN 81MG ENTERIC TABLET PO SCH (08:27)
[2023-02-25] MEDS: PANTOPRAZOLE 40MG TAB (PROTONIX) PO SCH (09:00)
[2023-02-25] MEDS: LOSARTAN 50MG TABLET PO SCH (14:09)
[2023-02-25] MEDS ORDERED: METOCLOPRAMIDE INJ 10MG/2ML VIAL IV ONE (16:00)
[2023-02-25 16:18] LABS: ALBUMIN 3.1 G/DL (3.2-5.2); BILIRUBIN,DIRECT 0.3 MG/DL (<0.4); BILIRUBIN,TOTAL 0.6 MG/DL (0.3-1.2); TOTAL PROTEIN 7.3 G/DL (5.7-8.2)
[2023-02-25] MEDS ORDERED: CALCIUM GLUCONATE 1,000 MG in D5W MINI-BAG PLUS 100 ML IV ONE (17:00)
[2023-02-25 17:11] LABS: ALBUMIN 3.1 G/DL (3.2-5.2); BILIRUBIN,TOTAL 0.6 MG/DL (0.3-1.2); CALCIUM LEVEL 7.9 MG/DL (8.5-10.1); CREATININE FOR GFR 8.42 MG/DL (0.70-1.30); GLOMERULAR FILTRATION RATE 7.4 (>60); POTASSIUM SERUM 4.7 MMOL/L (3.5-5.1); TOTAL PROTEIN 7.6 G/DL (5.7-8.2)
[2023-02-25] MEDS ORDERED: IBUPROFEN 600MG TAB PO ONE (18:00)
[2023-02-25] MEDS ORDERED: LIDOCAINE W/EPINEPHRINE 1% 20ML VIAL SC STA (18:23)
[2023-02-25] MEDS ORDERED: LIDOCAINE 1% MDV 20ML VIAL SC ONE (18:25)
[2023-02-25] MEDS: ATORVASTATIN 20 MG TAB PO SCH (20:24)
[2023-02-26] MEDS: ACETAMINOPHEN TAB 650MG DOSE (2X325MG) PO PRN ×4 (03:06→18:41)
[2023-02-26] MEDS: PIPERACILLIN/TAZOBACTAM SOD 2.25 GM in D5W MINI-BAG PLUS 50 ML IV SCH ×3 (03:07→20:55)
[2023-02-26 04:44] VITALS: BP 104/53; TEMP 100.8; O2SAT 97
[2023-02-26] MEDS: HEPARIN SOD (PORCINE) 5000UNITS/ML 1ML VIAL/SYRINGE SC SCH ×3 (05:03→21:03)
[2023-02-26] MEDS ORDERED: HEPARIN 1,000UNITS/ML 10ML VIAL (FOR RADIOLOGY & DIALYSIS ONLY) XX SCH (05:25)
[2023-02-26] MEDS ORDERED: HEPARIN 1,000UNITS/ML 10ML VIAL (FOR RADIOLOGY & DIALYSIS ONLY) IV PRN (05:25)
[2023-02-26] MEDS ORDERED: LIDOCAINE 1% SDV 5ML VIAL SC PRN (05:25)
[2023-02-26] MEDS ORDERED: SODIUM CHLORIDE 0.9% 1000ML IV PRN (05:25)
[2023-02-26 06:04] LABS: BASO % 0.5 % (0.0-1.0); EOS # 0.1 10^3/uL (0.0-0.5); EOS % 1.6 % (0.0-3.0); HEMATOCRIT 30.7 % (42.0-52.0); HEMOGLOBIN 9.3 g/dl (13.5-17.5); LYMPH # 0.7 10^3/uL (1.5-5.0); LYMPH % 16.5 % (24.0-44.0); MEAN CORPUSCULAR HEMOGLOBIN 30.8 pg (27.0-33.0); MEAN CORPUSCULAR HGB CONC 30.3 g/dl (32.0-36.5); MEAN CORPUSCULAR VOLUME 101.7 fl (80.0-96.0); MONO # 0.7 10^3/uL (0.0-0.8); NEUTROPHILS # 2.7 10^3/uL (1.5-8.5); NEUTROPHILS % 63.7 % (36.0-66.0); PLATELET COUNT, AUTOMATED 109 10^3/uL (150-450); RED BLOOD COUNT 3.02 10^6/uL (4.30-6.10); WHITE BLOOD COUNT 4.3 10^3/uL (4.0-10.0)
[2023-02-26 06:27] LABS: VANCOMYCIN RANDOM 18.2 UG/ML
[2023-02-26 06:31] LABS: CALCIUM LEVEL 7.5 MG/DL (8.5-10.1); CREATININE FOR GFR 10.76 MG/DL (0.70-1.30); GLOMERULAR FILTRATION RATE 5.5 (>60); POTASSIUM SERUM 4.8 MMOL/L (3.5-5.1)
[2023-02-26 08:00] VITALS: BP 106/55; TEMP 99.3; O2SAT 98
[2023-02-26] MEDS: LOSARTAN 50MG TABLET PO SCH (08:00)
[2023-02-26] MEDS: FOLIC ACID 1MG TAB PO SCH (08:12)
[2023-02-26] MEDS: PANTOPRAZOLE 40MG TAB (PROTONIX) PO SCH (08:12)
[2023-02-26] MEDS: ASPIRIN 81MG ENTERIC TABLET PO SCH (08:12)
[2023-02-26] MEDS: CALCIUM ACETATE 667MG GELCAP PO SCH ×3 (08:12→18:38)
[2023-02-26] MEDS: CALCITRIOL 0.25 MCG CAP (S0169) PO SCH (08:12)
[2023-02-26 12:00] VITALS: BP 119/71; TEMP 98.8; O2SAT 98
[2023-02-26] MEDS ORDERED: LIDOCAINE W/EPINEPHRINE 1% 20ML VIAL As Ordered ONE (14:16)
[2023-02-26] MEDS ORDERED: fentaNYL 100 MCG/2 ML INJECTION As Ordered ONE (14:24)
[2023-02-26] MEDS ORDERED: MIDAZOLAM INJ 2MG/2ML VIAL As Ordered ONE (14:25)
[2023-02-26] MEDS ORDERED: HEPARIN 1,000UNITS/ML 10ML VIAL (FOR RADIOLOGY & DIALYSIS ONLY) As Ordered ONE (14:51)
[2023-02-26 16:00] VITALS: BP 147/65; TEMP 97.3; O2SAT 100
[2023-02-26] MEDS ORDERED: VANCOMYCIN HCL 750 MG, VIAL MATE ADAPTER 1 EACH in D5W 250 ML IV SCH (16:00)
[2023-02-26 20:20] VITALS: BP 128/61; TEMP 97.5; O2SAT 99
[2023-02-26] MEDS: ATORVASTATIN 20 MG TAB PO SCH (21:02)
[2023-02-26 23:08] VITALS: BP 143/74; TEMP 97.3; O2SAT 98
[2023-02-27 03:21] VITALS: TEMP 97.7; O2SAT 96
[2023-02-27] MEDS: PIPERACILLIN/TAZOBACTAM SOD 2.25 GM in D5W MINI-BAG PLUS 50 ML IV SCH ×3 (03:40→20:40)
[2023-02-27] MEDS: ACETAMINOPHEN TAB 650MG DOSE (2X325MG) PO PRN ×3 (03:40→20:40)
[2023-02-27] MEDS ORDERED: HEPARIN 1,000UNITS/ML 10ML VIAL (FOR RADIOLOGY & DIALYSIS ONLY) IV PRN (05:25)
[2023-02-27] MEDS ORDERED: HEPARIN 1,000UNITS/ML 10ML VIAL (FOR RADIOLOGY & DIALYSIS ONLY) XX SCH (05:25)
[2023-02-27] MEDS ORDERED: SODIUM CHLORIDE 0.9% 1000ML IV PRN (05:25)
[2023-02-27] MEDS: FOLIC ACID 1MG TAB PO SCH (06:21)
[2023-02-27] MEDS: HEPARIN SOD (PORCINE) 5000UNITS/ML 1ML VIAL/SYRINGE SC SCH ×3 (06:22→23:33)
[2023-02-27] MEDS: ASPIRIN 81MG ENTERIC TABLET PO SCH (06:22)
[2023-02-27 06:38] LABS: BASO % 0.4 % (0.0-1.0); EOS # 0.1 10^3/uL (0.0-0.5); EOS % 2.6 % (0.0-3.0); HEMATOCRIT 30.5 % (42.0-52.0); HEMOGLOBIN 9.4 g/dl (13.5-17.5); LYMPH # 0.9 10^3/uL (1.5-5.0); MEAN CORPUSCULAR HEMOGLOBIN 30.7 pg (27.0-33.0); MEAN CORPUSCULAR HGB CONC 30.8 g/dl (32.0-36.5); MEAN CORPUSCULAR VOLUME 99.7 fl (80.0-96.0); MONO # 0.6 10^3/uL (0.0-0.8); MONO % 12.2 % (2.0-8.0); NEUTROPHILS # 3.3 10^3/uL (1.5-8.5); NEUTROPHILS % 65.8 % (36.0-66.0); PLATELET COUNT, AUTOMATED 101 10^3/uL (150-450); RED BLOOD COUNT 3.06 10^6/uL (4.30-6.10)
[2023-02-27 06:45] LABS: VANCOMYCIN RANDOM 16.5 UG/ML
[2023-02-27 06:51] LABS: CALCIUM LEVEL 7.6 MG/DL (8.5-10.1); CREATININE FOR GFR 13.41 MG/DL (0.70-1.30); GLOMERULAR FILTRATION RATE 4.3 (>60); MAGNESIUM LEVEL 2.2 MG/DL (1.8-2.4)
[2023-02-27 07:55] VITALS: BP 145/87; TEMP 97; O2SAT 96
[2023-02-27] MEDS: CALCIUM ACETATE 667MG GELCAP PO SCH ×3 (08:00→18:00)
[2023-02-27] MEDS ORDERED: DARBEPOETIN 100MCG/0.5ML *DIALYSIS* SYRINGE IV SCH (11:20)
[2023-02-27 13:30] VITALS: BP 119/69; TEMP 97.4; O2SAT 95
[2023-02-27] MEDS: PANTOPRAZOLE 40MG TAB (PROTONIX) PO SCH (13:49)
[2023-02-27] MEDS: LOSARTAN 50MG TABLET PO SCH (13:49)
[2023-02-27 20:00] VITALS: BP 135/78; TEMP 97.3; O2SAT 97
[2023-02-27] MEDS: ATORVASTATIN 20 MG TAB PO SCH (20:40)
[2023-02-27 23:40] VITALS: BP 130/76; TEMP 97.2; O2SAT 99
[2023-02-28 04:48] VITALS: BP 148/90; TEMP 98; O2SAT 97
[2023-02-28] MEDS: PIPERACILLIN/TAZOBACTAM SOD 2.25 GM in D5W MINI-BAG PLUS 50 ML IV SCH ×3 (05:08→20:47)
[2023-02-28] MEDS: HEPARIN SOD (PORCINE) 5000UNITS/ML 1ML VIAL/SYRINGE SC SCH ×3 (05:08→22:31)
[2023-02-28 05:55] LABS: BASO % 0.7 % (0.0-1.0); EOS # 0.2 10^3/uL (0.0-0.5); EOS % 2.8 % (0.0-3.0); HEMATOCRIT 30.7 % (42.0-52.0); HEMOGLOBIN 9.4 g/dl (13.5-17.5); LYMPH # 1.1 10^3/uL (1.5-5.0); LYMPH % 20.2 % (24.0-44.0); MEAN CORPUSCULAR HEMOGLOBIN 30.5 pg (27.0-33.0); MEAN CORPUSCULAR HGB CONC 30.6 g/dl (32.0-36.5); MEAN CORPUSCULAR VOLUME 99.7 fl (80.0-96.0); MONO # 0.5 10^3/uL (0.0-0.8); MONO % 9.5 % (2.0-8.0); NEUTROPHILS # 3.5 10^3/uL (1.5-8.5); NEUTROPHILS % 64.8 % (36.0-66.0); RED BLOOD COUNT 3.08 10^6/uL (4.30-6.10); WHITE BLOOD COUNT 5.5 10^3/uL (4.0-10.0)
[2023-02-28 06:17] LABS: C REACTIVE PROTEIN QUANTITATIV 5.5 MG/DL (<1.0)
[2023-02-28 06:18] LABS: VANCOMYCIN RANDOM 19.2 UG/ML
[2023-02-28 06:21] LABS: CALCIUM LEVEL 7.2 MG/DL (8.5-10.1); CREATININE FOR GFR 11.44 MG/DL (0.70-1.30); GLOMERULAR FILTRATION RATE 5.2 (>60); POTASSIUM SERUM 4.7 MMOL/L (3.5-5.1)
[2023-02-28] MEDS: FOLIC ACID 1MG TAB PO SCH (06:42)
[2023-02-28] MEDS: ASPIRIN 81MG ENTERIC TABLET PO SCH (06:42)
[2023-02-28 08:00] VITALS: BP 147/83; TEMP 97.6; O2SAT 95
[2023-02-28] MEDS: ACETAMINOPHEN TAB 650MG DOSE (2X325MG) PO PRN ×2 (08:51→20:48)
[2023-02-28] MEDS: PANTOPRAZOLE 40MG TAB (PROTONIX) PO SCH (08:51)
[2023-02-28] MEDS: CALCIUM ACETATE 667MG GELCAP PO SCH ×4 (08:51→18:22)
[2023-02-28] MEDS: CALCITRIOL 0.25 MCG CAP (S0169) PO SCH (08:51)
[2023-02-28] MEDS: LOSARTAN 50MG TABLET PO SCH (08:52)
[2023-02-28] MEDS ORDERED: DARBEPOETIN 100MCG/0.5ML *DIALYSIS* SYRINGE IV SCH (10:30)
[2023-02-28] MEDS ORDERED: LIDOCAINE 1% SDV 5ML VIAL SC PRN (10:30)
[2023-02-28] MEDS ORDERED: HEPARIN 1,000UNITS/ML 10ML VIAL (FOR RADIOLOGY & DIALYSIS ONLY) IV PRN (10:30)
[2023-02-28] MEDS ORDERED: HEPARIN 1,000UNITS/ML 10ML VIAL (FOR RADIOLOGY & DIALYSIS ONLY) XX SCH (10:30)
[2023-02-28 17:32] VITALS: BP 142/89; TEMP 97; O2SAT 96
[2023-02-28] MEDS: ATORVASTATIN 20 MG TAB PO SCH (20:48)
[2023-02-28 20:49] VITALS: BP 136/85; TEMP 98.3; O2SAT 97
[2023-03-01 00:38] VITALS: BP 152/83; TEMP 97.5; O2SAT 95
[2023-03-01 04:08] VITALS: BP 160/88; TEMP 97.8; O2SAT 98
[2023-03-01] MEDS: PIPERACILLIN/TAZOBACTAM SOD 2.25 GM in D5W MINI-BAG PLUS 50 ML IV SCH ×2 (04:18→11:56)
[2023-03-01] MEDS: ASPIRIN 81MG ENTERIC TABLET PO SCH ×2 (06:25→09:10)
[2023-03-01] MEDS: FOLIC ACID 1MG TAB PO SCH ×2 (06:25→09:10)
[2023-03-01] MEDS: HEPARIN SOD (PORCINE) 5000UNITS/ML 1ML VIAL/SYRINGE SC SCH (06:25)
[2023-03-01 06:51] LABS: HEMATOCRIT 32.2 % (42.0-52.0); MEAN CORPUSCULAR HEMOGLOBIN 31.3 pg (27.0-33.0); MEAN CORPUSCULAR HGB CONC 31.1 g/dl (32.0-36.5); MEAN CORPUSCULAR VOLUME 100.6 fl (80.0-96.0); PLATELET COUNT, AUTOMATED 128 10^3/uL (150-450); WHITE BLOOD COUNT 8.1 10^3/uL (4.0-10.0)
[2023-03-01 07:10] LABS: CALCIUM LEVEL 7.8 MG/DL (8.5-10.1); CREATININE FOR GFR 10.43 MG/DL (0.70-1.30); GLOMERULAR FILTRATION RATE 5.7 (>60); POTASSIUM SERUM 4.6 MMOL/L (3.5-5.1)
[2023-03-01 08:00] LABS: ATYPICAL LYMPH 8 % (0-5); EOSINOPHILS 2 % (0-3); LYMPHOCYTES 14 % (16-44); MONOCYTES 8 % (0-5); NEUTROPHILS 66 % (28-66); PLATELET ESTIMATE DECREASED (NORMAL)
[2023-03-01 08:01] LABS: POLYCHROMASIA 1+
[2023-03-01 08:23] VITALS: BP 150/90; TEMP 97.9; O2SAT 97
[2023-03-01 09:10] VITALS: BP 150/90
[2023-03-01] MEDS: PANTOPRAZOLE 40MG TAB (PROTONIX) PO SCH (09:10)
[2023-03-01] MEDS: LOSARTAN 50MG TABLET PO SCH (09:10)
[2023-03-01] MEDS: CALCIUM ACETATE 667MG GELCAP PO SCH ×2 (09:11→12:30)
[2023-03-01] MEDS ORDERED: LEVO1TAB39 PO (11:14)
[2023-03-01] MEDS ORDERED: BACITRACIN OINTMENT 30GM TUBE TOP PRN (11:55)
[2023-03-01 12:24] VITALS: BP 141/98; TEMP 97.2; O2SAT 92
== END 2023-03-01 14:00 | disposition home or self-care (01) | DRG 721 ==
LOC: M ED 22:03 → M ED INP 02-24 02:59 → M PCU 02-24 04:02
PROVIDERS: ADMIT Internal Medicine; ATTEND Student in an Organized Health Care Education/Training Program
PROC: 5A1D70Z Performance of Urinary Filtration, Intermittent, Less than 6 Hours Per Day (ICD-10-PCS; 2023-02-24)
PROC: B246ZZZ Ultrasonography of Right and Left Heart (ICD-10-PCS; principal; 2023-02-25)
PROC: 0JPT3XZ Removal of Tunneled Vascular Access Device from Trunk Subcutaneous Tissue and Fascia, Percutaneous Approach (ICD-10-PCS; 2023-02-25)
PROC: 02HV33Z Insertion of Infusion Device into Superior Vena Cava, Percutaneous Approach (ICD-10-PCS; 2023-02-26)
DX: T80.211A Bloodstream infection due to central venous catheter, initial encounter (principal); A41.81 Sepsis due to Enterococcus; N18.6 End stage renal disease; I12.0 Hypertensive chronic kidney disease with stage 5 chronic kidney disease or end stage renal disease; E11.22 Type 2 diabetes mellitus with diabetic chronic kidney disease; D69.6 Thrombocytopenia, unspecified; R65.20 Severe sepsis without septic shock; E11.51 Type 2 diabetes mellitus with diabetic peripheral angiopathy without gangrene; E66.01 Morbid (severe) obesity due to excess calories; E87.5 Hyperkalemia; G47.33 Obstructive sleep apnea (adult) (pediatric); R19.7 Diarrhea, unspecified; J45.909 Unspecified asthma, uncomplicated; F17.290 Nicotine dependence, other tobacco product, uncomplicated; I73.9 Peripheral vascular disease, unspecified; Z99.2 Dependence on renal dialysis; Z79.82 Long term (current) use of aspirin; Z79.899 Other long term (current) drug therapy; Z20.822 Contact with and (suspected) exposure to COVID-19